=== PATIENT | male | born 1950 | race Caucasian/White ===

== ENCOUNTER 2017-05-14 09:49 | Emergency (ER) | payer MEDICAID, OTHER ==
[~2017-05-14] VITALS: Ht 165.1 cm; Wt 64.7 kg
[2017-05-14] MEDS ORDERED: LISI20TA PO (10:09)
[2017-05-14] MEDS ORDERED: PRAV40TA2 PO (10:09)
[2017-05-14] MEDS ORDERED: TOPR50TA PO (10:09)
[2017-05-14] MEDS ORDERED: AMLO5TAB2 PO (10:09)
[2017-05-14] MEDS ORDERED: ASPI325T28 PO (10:09)
[2017-05-14] MEDS ORDERED: LIDOCAINE 2% W/EPIN INJ 20ML **PRES FREE INJ ONE (11:45)
[2017-05-14] MEDS ORDERED: BACT800T5 PO (12:28)
[2017-05-14 12:44] VITALS: BP 137/76
== END 2017-05-14 12:55 | disposition home or self-care (01) ==
LOC: M ED 09:49
DX: L72.3 Sebaceous cyst (principal); Z79.899 Other long term (current) drug therapy; Z79.82 Long term (current) use of aspirin; Z87.891 Personal history of nicotine dependence

== ENCOUNTER 2017-05-17 15:31 | Emergency (ER) | payer OTHER ==
[~2017-05-17] VITALS: Ht 165.1 cm; Wt 70.5 kg
[~2017-05-17 15:31] MED LIST: AMLO5TAB2 PO; ASPI325T28 PO; BACT800T5 PO; LISI20TA PO; PRAV40TA2 PO; TOPR50TA PO
[2017-05-17 15:32] VITALS: BP 112/68
== END 2017-05-17 18:07 | disposition home or self-care (01) ==
LOC: M ED 15:31
DX: L02.414 Cutaneous abscess of left upper limb (principal); L72.3 Sebaceous cyst; I10 Essential (primary) hypertension; E78.5 Hyperlipidemia, unspecified; Z79.899 Other long term (current) drug therapy; Z79.82 Long term (current) use of aspirin; Z87.891 Personal history of nicotine dependence

== ENCOUNTER → 2017-06-23 | Outpatient (REF) | payer MEDICARE, OTHER | LOC: M LAB REF 18:02 | PROVIDERS: ATTEND Surgery | DX: L72.3 Sebaceous cyst (principal) ==

== ENCOUNTER → 2018-12-12 | Outpatient (REF) | payer OTHER, MEDICARE ==
[~2018-12-12] MED LIST changes: -AMLO5TAB2 PO; +AMLO5TAB6 PO; +ASPI-222 PO; -ASPI325T28 PO
[2018-12-12 13:53] LABS: BASO % 0.2 % (0.0-1.0); EOS # 0.2 10^3/uL (0.0-0.50); EOS % 2.9 % (0.0-3.0); HEMATOCRIT 44.6 % (42.0-52.0); HEMOGLOBIN 15.5 g/dl (13.5-17.5); LYMPH # 1.2 10^3/uL (1.5-4.5); LYMPH % 21.6 % (24.0-44.0); MEAN CORPUSCULAR HEMOGLOBIN 31.5 pg (27.0-33.0); MEAN CORPUSCULAR HGB CONC 34.8 g/dl (32.0-36.5); MEAN CORPUSCULAR VOLUME 90.7 fl (80.0-96.0); MONO # 0.7 10^3/uL (0.0-0.8); MONO % 12.4 % (0.0-5.0); NEUTROPHILS # 3.4 10^3/uL (1.8-7.7); NEUTROPHILS % 62.7 % (36.0-66.0); PLATELET COUNT, AUTOMATED 199 10^3/uL (150-450); RED BLOOD COUNT 4.92 10^6/uL (4.30-6.10); WHITE BLOOD COUNT 5.5 10^3/uL (4.0-10.0)
[2018-12-12 14:02] LABS: ALBUMIN 3.8 GM/DL (3.2-5.2); ALT/SGPT 27 U/L (12-78); BILIRUBIN,TOTAL 0.5 MG/DL (0.2-1.0); BLOOD UREA NITROGEN 22 MG/DL (7-18); CALCIUM LEVEL 9.4 MG/DL (8.8-10.2); CARBON DIOXIDE LEVEL 23 MEQ/L (21-32); CHLORIDE LEVEL 108 MEQ/L (98-107); CHOLESTEROL LEVEL 161 MG/DL (<200); CHOLESTEROL RISK RATIO 4.128 (<5); CREATININE FOR GFR 1.03 MG/DL (0.70-1.30); GLOMERULAR FILTRATION RATE > 60.0 (>42); GLUCOSE, FASTING 93 MG/DL (70-100); HDL CHOLESTEROL 39 MG/DL (>40); LDL CHOLESTEROL 100 MG/DL (<100); NON-HDL-C 122 MG/DL; POTASSIUM SERUM 4.3 MEQ/L (3.5-5.1); SODIUM LEVEL 138 MEQ/L (136-145); TOTAL PROTEIN 7.3 GM/DL (6.4-8.2); TRIGLYCERIDES LEVEL 111 MG/DL (<150)
== END ==
LOC: M SFHCLERA 11:00
PROVIDERS: ATTEND Nurse Practitioner Family
DX: Z13.220 Encounter for screening for lipoid disorders (principal); Z13.1 Encounter for screening for diabetes mellitus

== ENCOUNTER → 2019-05-12 | Outpatient (CLI) | payer OTHER, MEDICARE ==
[~2019-05-12] MED LIST changes: -ASPI-222 PO; +ASPI-527 PO; -LISI20TA PO; +LISI20TA19 PO
--- NOTE | 2019-05-12 13:41 | REP ---
Clinical: Lower back pain Technique: AP, lateral, bilateral oblique and coned-down views of the lumbosacral spine. Findings: Age-related osteopenia and moderate multilevel degenerative changes are appreciated including endplate sclerosis with marginal spurring. No acute fracture / compression injury or subluxation. Impression: Osteopenia and moderate multilevel degenerative changes. Electronically Signed by Sourav White MD 05/12/2019 01:32 P
== END ==
LOC: M LRY 13:05
PROVIDERS: ATTEND Nurse Practitioner Family
DX: M85.88 Other specified disorders of bone density and structure, other site (principal); M51.36 Other intervertebral disc degeneration, lumbar region

== ENCOUNTER 2020-08-05 12:36 | Emergency (ER) | payer MEDICARE, OTHER ==
[~2020-08-05] VITALS: Ht 165.1 cm; Wt 66.6 kg
[~2020-08-05 12:36] MED LIST changes: +AMLO1TAB24 PO; -AMLO5TAB6 PO; -LISI20TA19 PO; +LISI20TA35 PO
[2020-08-05] MEDS ORDERED: NS 1,000 ML IV ONE (14:45)
[2020-08-05 15:02] LABS: BASO % 0.2 % (0.0-1.0); HEMATOCRIT 45.4 % (42.0-52.0); LYMPH % 20.3 % (24.0-44.0); MEAN CORPUSCULAR HEMOGLOBIN 30.4 pg (27.0-33.0); MEAN CORPUSCULAR VOLUME 91.9 fl (80.0-96.0); MONO # 0.5 10^3/uL (0.0-0.8); MONO % 11.1 % (0.0-5.0); NEUTROPHILS # 3.2 10^3/uL (1.5-8.5); PLATELET COUNT, AUTOMATED 143 10^3/uL (150-450); RED BLOOD COUNT 4.94 10^6/uL (4.30-6.10); WHITE BLOOD COUNT 4.7 10^3/uL (4.0-10.0)
[2020-08-05 15:38] LABS: ALBUMIN 3.7 GM/DL (3.2-5.2); BILIRUBIN,DIRECT 0.1 MG/DL (0.0-0.2); BILIRUBIN,TOTAL 0.4 MG/DL (0.2-1.0); CREATININE FOR GFR 2.23 MG/DL (0.70-1.30); POTASSIUM SERUM 4.2 MEQ/L (3.5-5.1); TOTAL PROTEIN 7.1 GM/DL (6.4-8.2)
--- NOTE | 2020-08-05 16:48 | REP ---
INDICATION: diarrhea/ arf. COMPARISON: None TECHNIQUE: Limited noncontrast enhanced exam and without oral bowel preparatory contrast administration. FINDINGS: Patchy and asymmetric lung base opacities likely fibrotic and/or subsegmental atelectatic changes. There are no pleural or pericardial effusions. There is cholelithiasis. Limited evaluation of the liver and spleen show no gross abnormalities. There are splenic calcifications consistent with granulomatous calcifications. Limited evaluation of the pancreas, adrenal glands, and kidneys show no gross abnormalities. Limited evaluation of the abdominal aorta and para-aortic regions show heavy calcific atherosclerotic change in the distal abdominal aorta and in the common iliac arteries. Limited evaluation of the bowel loops and the mesenteries show no gross abnormalities. There is no free fluid or free air. There is no evidence of a mass or adenopathy. Increased adipose tissue seen in each inguinal canal right greater than left. Bone window technique throughout the exam shows age-related changes. IMPRESSION: 1. Cholelithiasis. 2. No evidence of acute intra-abdominal or intrapelvic disease with limitations and findings as described above. 3. Aortic and iliac arterial atheromatous calcifications as described above. 4. Possible bilateral adipose containing inguinal hernias right greater than left. <Electronically signed by Uriel No > 08/05/20 [id number]
[2020-08-05 17:39] VITALS: BP 158/74
== END 2020-08-05 18:10 | disposition home or self-care (01) ==
LOC: M ED 12:36
DX: R19.7 Diarrhea, unspecified (principal); E86.0 Dehydration; K80.20 Calculus of gallbladder without cholecystitis without obstruction; I70.0 Atherosclerosis of aorta

== ENCOUNTER 2020-08-13 15:25 | Inpatient (IN) | payer MEDICARE, OTHER ==
[~2020-08-13] VITALS: Ht 165.1 cm; Wt 61.5 kg
[2020-08-13 16:11] LABS: BASO % 0.2 % (0.0-1.0); EOS % 0.4 % (0.0-3.0); HEMATOCRIT 45.7 % (42.0-52.0); HEMOGLOBIN 15.1 g/dl (13.5-17.5); LYMPH # 0.6 10^3/uL (1.5-5.0); LYMPH % 9.8 % (24.0-44.0); MEAN CORPUSCULAR HEMOGLOBIN 30.4 pg (27.0-33.0); MEAN CORPUSCULAR VOLUME 92.1 fl (80.0-96.0); MONO # 0.4 10^3/uL (0.0-0.8); MONO % 7.1 % (0.0-5.0); NEUTROPHILS # 4.6 10^3/uL (1.5-8.5); PLATELET COUNT, AUTOMATED 128 10^3/uL (150-450); RED BLOOD COUNT 4.96 10^6/uL (4.30-6.10); WHITE BLOOD COUNT 5.6 10^3/uL (4.0-10.0)
[2020-08-13 16:21] LABS: INR 0.96
[2020-08-13 16:22] LABS: FIBRINOGEN 500 MG/DL (221-452); PARTIAL THROMBOPLASTIN TIME 31.2 SECONDS (24.2-38.5)
--- NOTE | 2020-08-13 16:25 | REP ---
INDICATION: Coronavirus workup. COMPARISON: None TECHNIQUE: Single AP view of the chest performed portably with the patient upright. FINDINGS: The interstitium is a diffusely coarsened. This could be acute or chronic. There are no comparisons. There are no focal infiltrates or pleural effusions. Cardiac size is normal. The bailey, mediastinum, and skeletal structures are unremarkable. IMPRESSION: Coarsened interstitium. This could be acute or chronic. There are no comparisons. <Electronically signed by Minh Crawley > 08/13/20 [id number]
[2020-08-13] MEDS ORDERED: METO50TA7 PO (16:28)
[2020-08-13 16:34] LABS: ALBUMIN 2.7 GM/DL (3.2-5.2); ALT/SGPT 28 U/L (12-78); BLOOD UREA NITROGEN 58 MG/DL (7-18); CALCIUM LEVEL 7.9 MG/DL (8.8-10.2); CARBON DIOXIDE LEVEL 26 MEQ/L (21-32); CHLORIDE LEVEL 104 MEQ/L (98-107); CK-MB VALUE MASS 1.7 NG/ML (<3.6); CPK CREATINE PHOSPHOKINASE 164 U/L (39-308); CREATININE FOR GFR 1.65 MG/DL (0.70-1.30); FERRITIN 817 NG/ML (26-388); GLOMERULAR FILTRATION RATE 43.9 (>42); GLUCOSE, FASTING 117 MG/DL (70-100); LDH LACTATE DEHYDROGENASE 425 U/L (87-241); MAGNESIUM LEVEL 2.4 MG/DL (1.8-2.4); MB/CK RELATIVE INDEX 1.04 (< OR =4); POTASSIUM SERUM 4.4 MEQ/L (3.5-5.1); SODIUM LEVEL 136 MEQ/L (136-145); TOTAL PROTEIN 6.2 GM/DL (6.4-8.2); TROPONIN I < 0.02 NG/ML (< 0.10)
[2020-08-13 16:39] LABS: D-DIMER QUANT > 4000 ng/ml (<500)
[2020-08-13 17:15] LABS: ABG BASE EXCESS -1.7 (-2.0-2.0); ABG O2 SATURATION 91.2 % (95.0-99.0); ABG PARTIAL PRESSURE CO2 30.3 mmHg (35.0-45.0); ABG STANDARD HCO3 22.9 MEQ/L (22.0-26.0); ABG TOTAL CO2 21.9 MEQ/L (23.0-31.0); ABG pH (ARTERIAL) 7.458 UNITS (7.350-7.450)
[2020-08-13] MEDS: NS 1,000 ML IV SCH ×2 (17:38→23:50)
[2020-08-13] MEDS ORDERED: NS 1,000 ML IV ONE (19:45)
--- NOTE | 2020-08-13 19:56 | HPEPDOC ---
[facility] Medical History & Physical Date of Admission Aug 13, 2020 Date of Service: Aug 13, 2020 History and Physical CHIEF COMPLAINT: hypoxia HISTORY OF PRESENT ILLNESS: 70 yo M with a hx of HTN, DVT, R BKA, difficulty hearing, was seen at an urgent care, found to be COVID+. Had been in bed for 4 days, and has had poor PO intake. Patient lives in a house with his cousin, who became concerned with worsening shortness of breath so they brought him to urgent care, and he tested positive. On arrival to ED hypoxic to 70s. Requred 50% FiO2 on venturi mask. Admitted to ICU for COVID-19 infection management due to increased O2 requirement. 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 Lives with his brother. Independent at baseline. Quit smoking 20 years ago Denies drinking FAMILY HISTORY: Patient unable to specify family history. ALLERGIES: Please see below. REVIEW OF SYSTEMS: CONSTITUTIONAL: Warts, dyspnea or subjective chills HEENT: patient denies blurred vision, loss of vision, headache,. CARDIOVASCULAR: patient denies chest pain, palpitations. RESPIRATORY: No shortness of breath, cough, non-productive GASTROINTESTINAL: patient denies abdominal pain, n/v/d, blood in stool. GENITOURINARY: patient denies dysuria, discharge. SKIN: patient denies rashes. MUSCULOSKELETAL: patient denies joint pain, neck pain. NEUROLOGICAL: patient denies focal weakness, numbness, seizures. PSYCHIATRIC: patient denies SI/HI. ENDOCRINE: patient denies polyuria, heat intolerance, cold intolerance. HEMATOLOGIC/LYMPHATIC: patient denies easy bruising. HOME MEDICATIONS: Please see below. PHYSICAL EXAMINATION: VITAL SIGNS: please see below General: NAD, comfortable HEENT: PERRLA, EOMI, dry mucous membranes Neck: supple, normal ROM, no JVD Respiratory: Reduced air entry bilaterally. No wheezes. CVS: RRR, normal S1, S2, no murmurs Abdo: soft, no masses, no hepatosplenomegaly, BS+, no rebound tenderness Extremities: no edema MSK: Right BKA Neuro: no focal neuro deficits, moving all 4 extremities, CN2-12 intact. Strength 5/5 in all 4 extremities. No nystagmus. Psych: calm, cooperative, AAO x 3 LABORATORY DATA: See below. IMAGING: Chest x-ray 08/13/20 FINDINGS: The interstitium is a diffusely coarsened. This could be acute or chronic. There are no comparisons. There are no focal infiltrates or pleural effusions. Cardiac size is normal. The bailey, mediastinum, and skeletal structures are unremarkable. IMPRESSION: Coarsened interstitium. This could be acute or chronic. There are no comparisons. MICROBIOLOGY: Please see below. ASSESSMENT: 70-year-old male with history of hypertension, right BKA secondary to diabetes, admitted for hypoxia secondary to Covid 19 infection. Require immediate treatment mask 50% FiO2. Will be admitted to Covid unit on dexamethasone as well as remdesevir. PLAN: Covid 19: Admitted to Covid unit. Continuous oxygen monitoring. Continue the treatment mask 50% FiO2 to maintain oxygen saturation above 90%. D-dimer>4000. fibrinogen 500. CRP 12.3. Start dexamethasone 6 minute grams IV daily started on the severe. Monitor inflammatory markers. Monitor DIC panel. Trop wnl. Lactic acidosis: Lactic acid 2.7. Received normal saline at 150 mL/h. Give 1 L normal saline bolus. Repeat lactic acid DYLAN: Cr 1.65. Suspect prerenal DYLAN. Check FeNa. Avoid nephrotoxins. DVT prophylaxis: Give 1 dose of Lovenox 1 mg/kg given hypoxia as well as elevated inflammatory markers as well as d-dimer. 4000. Vital Signs Vital Signs Date Time Temp Pulse Resp B/P (MAP) Pulse Ox O2 Delivery O2 Flow Rate FiO2 08/13/20 18:45 90 24 103/57 (72) 94 Venturi Mask 6.0 08/13/20 16:09 95 08/13/20 16:03 95.4 Laboratory Data Labs 24H Laboratory Tests 2 08/13/20 15:53: Immature Granulocyte % (Auto) 0.5, Neutrophils (%) (Auto) 82.0H, Lymphocytes (%) (Auto) 9.8L, Monocytes (%) (Auto) 7.1H, Eosinophils (%) (Auto) 0.4, Basophils (%) (Auto) 0.2, Neutrophils # (Auto) 4.6, Lymphocytes # (Auto) 0.6L, Monocytes # (Auto) 0.4, Eosinophils # (Auto) 0.0, Basophils # (Auto) 0.0, Nucleated Red Blood Cells % (auto) 0.0, Prothrombin Time 13.0, Prothromb Time International Ratio 0.96, Activated Partial Thromboplast Time 31.2, Fibrinogen 500H, D-Dimer, Quantitative > 4000H, Anion Gap 6L, Glomerular Filtration Rate 43.9, Lactic Acid Level 2.7*H, Calcium Level 7.9L, Magnesium Level 2.4, Ferritin 817H, Total Bilirubin 1.0, Aspartate Amino Transf (AST/SGOT) 39H, Alanine Aminotransferase (ALT/SGPT) 28, Alkaline Phosphatase 50, Lactate Dehydrogenase 425H, Total Creatine Kinase 164, Creatine Kinase MB 1.7, Creatine Kinase MB Relative Index 1.04, Troponin I < 0.02, C-Reactive Protein, Quantitative 12.30H, Total Protein 6.2L, Albumin 2.7L, Albumin/Globulin Ratio 0.8 08/13/20 17:11: Blood Gas Bicarbonate Standard 22.9, Arterial Blood pH 7.458H, Arterial Blood Partial Pressure CO2 30.3L, Arterial Blood Partial Pressure O2 60.0L, Arterial Blood Total CO2 21.9L, Arterial Blood HCO3 21.0L, Arterial Blood Base Excess - 1.7, Arterial Blood Oxygen Saturation 91.2L CBC/BMP Laboratory Tests 08/13/20 15:53 Home Medications Scheduled Amlodipine Besylate (Amlodipine Besylate) 5 Mg Tab, 10 MG PO DAILY Aspirin (Aspirin EC) 325 Mg Tab, 325 MG PO DAILY Enoxaparin Sodium (Lovenox) 60 Mg/0.6 Ml Syringe, 60 MG SC Q12H Metoprolol Tartrate (Metoprolol Tartrate) 50 Mg Tablet, 50 MG PO BID Pravastatin Sodium (Pravastatin Sodium) 40 Mg Tab, 40 MG PO DAILY Scheduled PRN Albuterol Sulfate (Ventolin Hfa) 18 Gm Hfa.aer.ad, 2 PUFF INH Q4-6HP PRN for wheezing Allergies Coded Allergies: No Known Allergies (Unverified , 08/05/20) A-FIB/CHADSVASC A-FIB History Current/History of A-Fib/PAF?: No Current PO Anticoag Therapy: No EDUAR SANTIAGO MD Aug 13, 2020 19:55
[2020-08-13] MEDS: dexameTHASONE 4 MG/ML 1ML VIAL (J1100 PER 1MG) IV SCH (20:30)
[2020-08-13] MEDS ORDERED: SODIUM CHLORIDE 0.9% INJ 10 ML SYR IV ONE ×2 (21:00→21:30)
--- NOTE | 2020-08-13 21:00 | ECGEPIP ---
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
[2020-08-13] MEDS ORDERED: ENOXAPARIN 80MG/0.8ML SYRINGE (J1650 PER 10MG) SC ONE (22:00)
[2020-08-13 23:10] VITALS: O2SAT 89
[2020-08-14] VITALS (15 sets, daily range): BP systolic 97–145; BP diastolic 55–69; O2SAT 88–94
[2020-08-14 05:21] LABS: HEMATOCRIT 39.1 % (42.0-52.0); LYMPH # 0.3 10^3/uL (1.5-5.0); LYMPH % 11.2 % (24.0-44.0); MEAN CORPUSCULAR HEMOGLOBIN 30.6 pg (27.0-33.0); MEAN CORPUSCULAR HGB CONC 33.5 g/dl (32.0-36.5); MEAN CORPUSCULAR VOLUME 91.4 fl (80.0-96.0); MONO # 0.1 10^3/uL (0.0-0.8); MONO % 4.1 % (0.0-5.0); NEUTROPHILS % 84.3 % (36.0-66.0); PLATELET COUNT, AUTOMATED 104 10^3/uL (150-450); RED BLOOD COUNT 4.28 10^6/uL (4.30-6.10); WHITE BLOOD COUNT 2.4 10^3/uL (4.0-10.0)
[2020-08-14 05:22] LABS: HEMOGLOBIN 13.1 g/dl (13.5-17.5)
[2020-08-14 05:28] LABS: INR 1.16; PROTHROMBIN TIME 15.1 SECONDS (12.5-14.3)
[2020-08-14 05:29] LABS: PARTIAL THROMBOPLASTIN TIME 41.3 SECONDS (24.2-38.5)
[2020-08-14 06:03] LABS: ALT/SGPT 21 U/L (12-78); BILIRUBIN,DIRECT 0.3 MG/DL (0.0-0.2); BILIRUBIN,TOTAL 0.5 MG/DL (0.2-1.0); BLOOD UREA NITROGEN 46 MG/DL (7-18); CARBON DIOXIDE LEVEL 23 MEQ/L (21-32); CHLORIDE LEVEL 113 MEQ/L (98-107); FERRITIN 737 NG/ML (26-388); GLOMERULAR FILTRATION RATE > 60.0 (>42); GLUCOSE, FASTING 146 MG/DL (70-100); MAGNESIUM LEVEL 2.3 MG/DL (1.8-2.4); NT-PRO BNP 338 PG/ML (<125); POTASSIUM SERUM 4.7 MEQ/L (3.5-5.1); SODIUM LEVEL 141 MEQ/L (136-145); TROPONIN I < 0.02 NG/ML (< 0.10)
[2020-08-14] MEDS: NS 1,000 ML IV SCH (06:32)
--- NOTE | 2020-08-14 07:42 | IPNPDOC ---
Date Seen The patient was seen on 08/14/20. Progress Note SUBJECTIVE: Patient was seen and examined at bedside this morning. He is currently on high flow nasal cannula at 6 L. However, he is saturating between 88-90%. For the desaturation movement or ambulation. He describes mild shortness of breath. He denies any chest pain, cough, fevers or chills. He is comfortable at bedside. He has not had any fevers overnight. He is currently receiving dexamethasone and remdesivir. OBJECTIVE VITAL SIGNS: please see below General: NAD, comfortable HEENT: PERRLA, EOMI, dry mucous membranes Neck: supple, normal ROM, no JVD Respiratory: Reduced air entry bilaterally. No wheezes. CVS: RRR, normal S1, S2, no murmurs Abdo: soft, no masses, no hepatosplenomegaly, BS+, no rebound tenderness Extremities: no edema MSK: Right BKA Neuro: no focal neuro deficits, moving all 4 extremities (R bka). CN2-12 intact. Psych: calm, cooperative, AAO x 3 LABORATORY DATA, IMAGING STUDIES, MICROBIOLOGY: Please see below. 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 Given severe hypoxia elevation in d-dimer, as well as other family to markers high concern for pulmonary embolism. Per Dr. Henry's recommendations. We'll continue with full dose and regulation. Increase doses morning. Given improvement in renal function. PROBLEMS: Covid 19: Admitted to Covid unit. Continuous oxygen monitoring. reduced O2 requirement, now 6L on NC. C/w dexamethasone, remdesivir. Full dose AC with lovenox 1mg/kg q12h. Monitor inflammatory markers. Monitor DIC panel. Trop wnl. procal netative. Lactic acidosis: Resolved with IVF bolus. DYLAN: Resolved. Creatinine 1.0. Secondary to dehydration. Improved with IVF. Reduced NS to 75 cc/hr. DVT prophylaxis: Continue full dose anticoagulations with Lovenox at 1 mg/kg every 12 hours VS, I&O, 24H, Fishbone Vital Signs/I&O Vital Signs Date Time Temp Pulse Resp B/P (MAP) Pulse Ox O2 Delivery O2 Flow Rate FiO2 08/14/20 06:00 81 20 120/62 (81) 92 Venturi Mask 15.0 50 08/14/20 04:00 95.7 I&O- Last 24 Hours up to 6 AM 08/14/20 06:00 Intake Total 1610 ml Output Total 275 ml Balance 1335 ml Laboratory Data 24H LABS Laboratory Tests 2 08/13/20 15:53: Immature Granulocyte % (Auto) 0.5, Neutrophils (%) (Auto) 82.0H, Lymphocytes (%) (Auto) 9.8L, Monocytes (%) (Auto) 7.1H, Eosinophils (%) (Auto) 0.4, Basophils (%) (Auto) 0.2, Neutrophils # (Auto) 4.6, Lymphocytes # (Auto) 0.6L, Monocytes # (Auto) 0.4, Eosinophils # (Auto) 0.0, Basophils # (Auto) 0.0, Nucleated Red Blood Cells % (auto) 0.0, Prothrombin Time 13.0, Prothromb Time International Ratio 0.96, Activated Partial Thromboplast Time 31.2, Fibrinogen 500H, D-Dimer, Quantitative > 4000H, Anion Gap 6L, Glomerular Filtration Rate 43.9, Lactic Acid Level 2.7*H, Calcium Level 7.9L, Magnesium Level 2.4, Ferritin 817H, Total Bilirubin 1.0, Aspartate Amino Transf (AST/SGOT) 39H, Alanine Aminotransferase (ALT/SGPT) 28, Alkaline Phosphatase 50, Lactate Dehydrogenase 425H, Total Creatine Kinase 164, Creatine Kinase MB 1.7, Creatine Kinase MB Relative Index 1.04, Troponin I < 0.02, C-Reactive Protein, Quantitative 12.30H, Total Protein 6.2L, Albumin 2.7L, Albumin/Globulin Ratio 0.8 08/13/20 17:11: Blood Gas Bicarbonate Standard 22.9, Arterial Blood pH 7.458H, Arterial Blood Partial Pressure CO2 30.3L, Arterial Blood Partial Pressure O2 60.0L, Arterial Blood Total CO2 21.9L, Arterial Blood HCO3 21.0L, Arterial Blood Base Excess - 1.7, Arterial Blood Oxygen Saturation 91.2L 08/13/20 21:00: Lactic Acid Followup at 4 Hours 1.4 08/14/20 04:56: Immature Granulocyte % (Auto) 0.4, Neutrophils (%) (Auto) 84.3H, Lymphocytes (%) (Auto) 11.2L, Monocytes (%) (Auto) 4.1, Eosinophils (%) (Auto) 0.0, Basophils (%) (Auto) 0.0, Neutrophils # (Auto) 2.0, Lymphocytes # (Auto) 0.3L, Monocytes # (Auto) 0.1, Eosinophils # (Auto) 0.0, Basophils # (Auto) 0.0, Nucleated Red Blood Cells % (auto) 0.0, Prothrombin Time 15.1H, Prothromb Time International Ratio 1.16, Activated Partial Thromboplast Time 41.3H, Fibrinogen 457H, Anion Gap 5L, Glomerular Filtration Rate > 60.0, Calcium Level 7.0L, Magnesium Level 2.3, Ferritin 737H, Total Bilirubin 0.5, Aspartate Amino Transf (AST/SGOT) 27, Alanine Aminotransferase (ALT/SGPT) 21, Alkaline Phosphatase 40L, Troponin I < 0.02, Total Protein 5.0L, Albumin 2.0#L, Albumin/Globulin Ratio 0.7, Direct Bilirubin 0.3H, OX-Rsp-Q-Type Natriuretic Peptide 338H CBC/BMP Laboratory Tests 08/13/20 15:53 08/14/20 04:56 EDUAR SANTIAGO MD Aug 14, 2020 07:42
[2020-08-14] MEDS ORDERED: FLUBLOK(EGG FREE)(QUAD)INFLUENZA VACC 0.5ML SYRINGE 18YRS & OLDER IM SCH (09:00)
[2020-08-14] MEDS: ENOXAPARIN 80MG/0.8ML SYRINGE (J1650 PER 10MG) SC SCH ×2 (09:13→22:04)
[2020-08-14] MEDS: dexameTHASONE 4 MG/ML 1ML VIAL (J1100 PER 1MG) IV SCH (09:14)
[2020-08-14] MEDS ORDERED: NS 1,000 ML IV SCH (10:45)
[2020-08-14] MEDS ORDERED: NS 0.45% 1,000 ML IV SCH (11:30)
--- NOTE | 2020-08-14 15:29 | REP ---
INDICATION: covid, hyypoxia,r/o dvt COMPARISON: 07/18/2007 TECHNIQUE: Real time compression and duplex Doppler interrogation of the bilateral lower extremity deep venous system is performed. FINDINGS: Bilaterally, the common femoral, superficial femoral and popliteal veins are fully compressible with transducer pressure and demonstrate normal spontaneous and phasic flow, without evidence of deep venous thrombosis. IMPRESSION: No evidence of deep venous thrombosis of the bilateral lower extremity femoral popliteal venous system. <Electronically signed by Minh Sloan > 08/14/20 [id number]
[2020-08-14] MEDS ORDERED: SODIUM CHLORIDE 0.9% INJ 10 ML SYR IV SCH (20:30)
[2020-08-14] MEDS: SODIUM CHLORIDE 0.9% INJ 10 ML SYR IV SCH (22:05)
[2020-08-15] VITALS (14 sets, daily range): BP systolic 125–167; BP diastolic 62–71; O2SAT 84–90
[2020-08-15 07:09] LABS: BASO % 0.1 % (0.0-1.0); HEMATOCRIT 37.5 % (42.0-52.0); HEMOGLOBIN 12.4 g/dl (13.5-17.5); LYMPH # 0.6 10^3/uL (1.5-5.0); LYMPH % 8.9 % (24.0-44.0); MEAN CORPUSCULAR HGB CONC 33.1 g/dl (32.0-36.5); MEAN CORPUSCULAR VOLUME 90.6 fl (80.0-96.0); MONO # 0.4 10^3/uL (0.0-0.8); NEUTROPHILS # 6.2 10^3/uL (1.5-8.5); NEUTROPHILS % 85.2 % (36.0-66.0); PLATELET COUNT, AUTOMATED 150 10^3/uL (150-450); RED BLOOD COUNT 4.14 10^6/uL (4.30-6.10); WHITE BLOOD COUNT 7.2 10^3/uL (4.0-10.0)
[2020-08-15 07:26] LABS: INR 1.27; PARTIAL THROMBOPLASTIN TIME 39.4 SECONDS (24.2-38.5); PROTHROMBIN TIME 16.2 SECONDS (12.5-14.3)
[2020-08-15 07:33] LABS: ALBUMIN 1.9 GM/DL (3.2-5.2); ALT/SGPT 22 U/L (12-78); BILIRUBIN,DIRECT 0.2 MG/DL (0.0-0.2); BILIRUBIN,TOTAL 0.4 MG/DL (0.2-1.0); BLOOD UREA NITROGEN 40 MG/DL (7-18); CALCIUM LEVEL 7.6 MG/DL (8.8-10.2); CARBON DIOXIDE LEVEL 20 MEQ/L (21-32); CHLORIDE LEVEL 114 MEQ/L (98-107); CREATININE FOR GFR 0.98 MG/DL (0.70-1.30); FERRITIN 596 NG/ML (26-388); GLOMERULAR FILTRATION RATE > 60.0 (>42); GLUCOSE, FASTING 147 MG/DL (70-100); MAGNESIUM LEVEL 2.4 MG/DL (1.8-2.4); NT-PRO BNP 1214 PG/ML (<125); POTASSIUM SERUM 4.4 MEQ/L (3.5-5.1); SODIUM LEVEL 141 MEQ/L (136-145); TOTAL PROTEIN 5.5 GM/DL (6.4-8.2); TROPONIN I < 0.02 NG/ML (< 0.10)
[2020-08-15 08:37] LABS: IRON (FE) 66 UG/DL (65-175)
[2020-08-15] MEDS: dexameTHASONE 4 MG/ML 1ML VIAL (J1100 PER 1MG) IV SCH (09:23)
[2020-08-15] MEDS: ENOXAPARIN 80MG/0.8ML SYRINGE (J1650 PER 10MG) SC SCH ×2 (09:24→21:18)
[2020-08-15 09:46] LABS: TOTAL 25(OH) VITAMIN D 25.4 NG/ML (30.0-100.0); VITAMIN B12 LEVEL > 2000 PG/ML (247-911)
--- NOTE | 2020-08-15 12:08 | IPNPDOC ---
Date Seen The patient was seen on 08/15/20. Progress Note SUBJECTIVE: Patient was seen and examined at bedside this morning. He is requiring greater oxygen supplementation, increased HF NC to 10LPM and was saturating at 88-90%. Decision to go to vapotherm. Will attempt proning. Despite increasing oxygen requirement. Patient appears quite comfortable at rest. He is alert and awake in bed, sitting upright. He has difficulty communicating due to severe hearing impairment. However, he has hearing phase by his side. He states that he wanted to be intubated if it comes to that. He denies fevers, chills, shortness of breath, chest pain, developing nausea, vomiting or diarrhea. OBJECTIVE VITAL SIGNS: please see below General: NAD, comfortable HEENT: PERRLA, EOMI, dry mucous membranes Neck: supple, normal ROM, no JVD Respiratory: Reduced air entry bilaterally. No wheezes. CVS: RRR, normal S1, S2, no murmurs Abdo: soft, no masses, no hepatosplenomegaly, BS+, no rebound tenderness Extremities: no edema MSK: Right BKA Neuro: no focal neuro deficits, moving all 4 extremities (R bka). CN2-12 intact. Psych: calm, cooperative, AAO x 3 LABORATORY DATA, IMAGING STUDIES, MICROBIOLOGY: Please see below. 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 Given severe hypoxia elevation in d-dimer, as well as other family to markers high concern for pulmonary embolism. Per Dr. Henry's recommendations, will continue with full dose and regulation. PROBLEMS: Covid 19: Admitted to Covid unit. Continuous oxygen monitoring. Patient now requiring increased O2. Will use vapotherm, trial proning. C/w dexamethasone, remdesivir. Full dose AC with lovenox 1mg/kg q12h. Monitor inflammatory markers. Monitor DIC panel, fibrinogen 375. Trop wnl. procal negative. Lactic acidosis: Resolved with IVF bolus. DYLAN: Resolved. Creatinine 1.0. Secondary to dehydration. Improved with IVF. DVT prophylaxis: Continue full dose anticoagulations with Lovenox at 1 mg/kg every 12 hours I spoke patient's daughter, Ayaka Amaral at [phone] and updated her as to increased O2 requirements, and possible need for intubation. Patient verbalized to me that he wants to be intubated if needed, and that his daughter would make decisions for him thereafter. VS, I&O, 24H, Deandrebone Vital Signs/I&O Vital Signs Date Time Temp Pulse Resp B/P (MAP) Pulse Ox O2 Delivery O2 Flow Rate FiO2 08/15/20 10:00 HVNI-Vapotherm 25.0 95 08/15/20 10:00 78 14 143/66 (91) 99 08/15/20 08:00 95.8 I&O- Last 24 Hours up to 6 AM 08/15/20 06:00 Intake Total 2680 ml Output Total 600 ml Balance 2080 ml Laboratory Data 24H LABS Laboratory Tests 2 08/14/20 19:35: Troponin I < 0.02 08/15/20 06:43: Troponin I < 0.02, Immature Granulocyte % (Auto) 0.8, Neutrophils (%) (Auto) 85.2H, Lymphocytes (%) (Auto) 8.9L, Monocytes (%) (Auto) 5.0, Eosinophils (%) (Auto) 0.0, Basophils (%) (Auto) 0.1, Neutrophils # (Auto) 6.2, Lymphocytes # (Auto) 0.6L, Monocytes # (Auto) 0.4, Eosinophils # (Auto) 0.0, Basophils # (Auto) 0.0, Nucleated Red Blood Cells % (auto) 0.0, Prothrombin Time 16.2H, Prothromb Time International Ratio 1.27, Activated Partial Thromboplast Time 39.4H, Fibrinogen 375, Anion Gap 7L, Glomerular Filtration Rate > 60.0, Calcium Level 7.6L, Magnesium Level 2.4, Iron Level 66, Ferritin 596H, Total Bilirubin 0.4, Direct Bilirubin 0.2, Aspartate Amino Transf (AST/SGOT) 23, Alanine Aminotransferase (ALT/SGPT) 22, Alkaline Phosphatase 47, EC-Ulv-A-Type Natriuretic Peptide 1214H, Total Protein 5.5L, Albumin 1.9L, Albumin/Globulin Ratio 0.5, Vitamin B12 Level > 2000H, 25-Hydroxy Vitamin D Total 25.4L, Folate 14.0, Procalcitonin 0.05 CBC/BMP Laboratory Tests 08/15/20 06:43 EDUAR SANTIAGO MD Aug 15, 2020 12:08
[2020-08-15 12:16] LABS: C REACTIVE PROTEIN QUANTITATIV 6.65 MG/DL (0.00-0.30)
[2020-08-15 12:46] LABS: D-DIMER QUANT 2230.53 ng/ml (<500)
--- NOTE | 2020-08-15 14:26 | ECHO ---
DATE OF PROCEDURE: 08/14/2020 Age: 70 Gender: Male Height: 165 cm Weight: 76 kg REFERRING PHYSICIAN: Otilio Tolentino MD INDICATION: Dyspnea, unspecified. MEASUREMENTS: 2D Measurements: Intraventricular septum 1.12 cm Posterior wall 0.84 cm Left ventricle diastole 4.3 cm Aortic root 3.6 cm Left atrium 2.7 cm Left atrial volume index 14 Inferior vena cava 1.2 cm with more than 50% respiratory variation Aortic annulus 2.1 cm Doppler Measurements: Mild aortic regurgitation Moderate aortic stenosis Aortic valve area 1.15 cm2 (continuity equation, VTI). Dimensionless index 0.33 Peak aortic valve gradient 371 cm/s Peak aortic valve gradient 55 mmHg Mean aortic valve gradient 34 mmHg Aortic valve VTI 85.7 cm Aortic regurgitation pressure halftime 487 msec LVOT velocity 116 cm/s LVOT VTI 28.5 cm No mitral regurgitation No mitral stenosis Mitral E velocity 58.5 cm/s Mitral A velocity 72.7 cm/s Trace tricuspid regurgitation Pulmonary artery acceleration time 116 msec No pulmonic regurgitation MITRAL ANNULAR TISSUE DOPPLER E prime septal 6.6 cm/s, E prime lateral 9.7 cm/s DESCRIPTION: Rhythm was sinus. Image quality was fair. No pericardial effusion. This was a 2D, M-mode, color flow Doppler, and pulsed wave Doppler examination including mitral annular tissue Doppler. CONCLUSIONS: 1. Severe focal thickening and focal calcification deposits of the aortic valve with marked reduction in mobility. Difficult to determine the number of aortic cusps. Moderate aortic stenosis and mild aortic regurgitation. 2. Normal left ventricle size and internal dimensions and wall thickness. Mildly hyperdynamic left ventricular (LV) systolic function. Left ventricular ejection fraction (LVEF) 70% by visual estimate. No regional left ventricular (LV) wall motion abnormalities. Grade 1 left ventricular (LV) diastolic dysfunction (impaired relaxation filling pattern). 3. Mild mitral annular calcification. No mitral regurgitation. 4. Otherwise normal appearing echocardiogram Doppler findings. ADDITIONAL COMMENTS AND RECOMMENDATIONS: Recommend a follow-up echocardiogram- Doppler in one year. JERONIMO
[2020-08-15] MEDS: SODIUM CHLORIDE 0.9% INJ 10 ML SYR IV SCH (21:18)
[2020-08-15] MEDS ORDERED: NS 1,000 ML IV ONE (22:00)
[2020-08-15] MEDS ORDERED: NS 1,000 ML IV SCH (22:15)
[2020-08-15] MEDS ORDERED: LR 1,000 ML IV SCH (22:15)
[2020-08-16] VITALS (11 sets, daily range): BP systolic 145–184; BP diastolic 65–86
[2020-08-16 05:52] LABS: BASO % 0.1 % (0.0-1.0); LYMPH # 0.8 10^3/uL (1.5-5.0); LYMPH % 9.1 % (24.0-44.0); MEAN CORPUSCULAR HEMOGLOBIN 29.8 pg (27.0-33.0); MEAN CORPUSCULAR HGB CONC 32.5 g/dl (32.0-36.5); MEAN CORPUSCULAR VOLUME 91.7 fl (80.0-96.0); MONO # 0.5 10^3/uL (0.0-0.8); NEUTROPHILS % 83.8 % (36.0-66.0); PLATELET COUNT, AUTOMATED 206 10^3/uL (150-450); RED BLOOD COUNT 4.36 10^6/uL (4.30-6.10); WHITE BLOOD COUNT 8.3 10^3/uL (4.0-10.0)
[2020-08-16 06:03] LABS: INR 1.23; PROTHROMBIN TIME 15.8 SECONDS (12.5-14.3)
[2020-08-16 06:04] LABS: PARTIAL THROMBOPLASTIN TIME 38.5 SECONDS (24.2-38.5)
[2020-08-16 06:16] LABS: ALBUMIN 2.1 GM/DL (3.2-5.2); ALT/SGPT 29 U/L (12-78); BILIRUBIN,DIRECT 0.2 MG/DL (0.0-0.2); BILIRUBIN,TOTAL 0.5 MG/DL (0.2-1.0); BLOOD UREA NITROGEN 33 MG/DL (7-18); CALCIUM LEVEL 7.7 MG/DL (8.8-10.2); CARBON DIOXIDE LEVEL 19 MEQ/L (21-32); CHLORIDE LEVEL 115 MEQ/L (98-107); CREATININE FOR GFR 0.83 MG/DL (0.70-1.30); FERRITIN 484 NG/ML (26-388); GLOMERULAR FILTRATION RATE > 60.0 (>42); GLUCOSE, FASTING 109 MG/DL (70-100); MAGNESIUM LEVEL 2.1 MG/DL (1.8-2.4); NT-PRO BNP 2725 PG/ML (<125); POTASSIUM SERUM 4.5 MEQ/L (3.5-5.1); SODIUM LEVEL 141 MEQ/L (136-145); TOTAL PROTEIN 5.4 GM/DL (6.4-8.2)
[2020-08-16 07:49] LABS: D-DIMER QUANT 1550.45 ng/ml (<500)
[2020-08-16] MEDS: ENOXAPARIN 80MG/0.8ML SYRINGE (J1650 PER 10MG) SC SCH ×2 (08:25→20:20)
[2020-08-16] MEDS: dexameTHASONE 4 MG/ML 1ML VIAL (J1100 PER 1MG) IV SCH (08:25)
[2020-08-16] MEDS: SODIUM CHLORIDE 0.9% INJ 10 ML SYR IV SCH (20:26)
--- NOTE | 2020-08-16 22:55 | IPNPDOC ---
Date Seen The patient was seen on 08/16/20. Progress Note SUBJECTIVE: Patient was seen and examined at bedside this morning. He is requiring greater oxygen supplementation, switched to vapotherm FiO2 80% 30 LPM. Patient is alert and oriented x 3. SOB. Denies chest pain, palpitations, n/v/d. OBJECTIVE VITAL SIGNS: please see below General: NAD, comfortable HEENT: PERRLA, EOMI, dry mucous membranes Neck: supple, normal ROM, no JVD Respiratory: Reduced air entry bilaterally. No wheezes. CVS: RRR, normal S1, S2, no murmurs Abdo: soft, no masses, no hepatosplenomegaly, BS+, no rebound tenderness Extremities: no edema MSK: Right BKA Neuro: no focal neuro deficits, moving all 4 extremities (R bka). CN2-12 intact. Psych: calm, cooperative, AAO x 3 LABORATORY DATA, IMAGING STUDIES, MICROBIOLOGY: Please see below. 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 Given severe hypoxia elevation in d-dimer, as well as other family to markers high concern for pulmonary embolism. Per Dr. Henry's recommendations, will continue with full dose and regulation. PROBLEMS: Acute hypoxic respiratory failure requiring venti mask O2 supplementation. Viral sepsis 2/2 covid-19 given lactic acidosis, hypotension, hypothermia. Covid 19: Admitted to Covid unit. Continuous oxygen monitoring. Vapotherm FiO2 80%, 30 LPM, trial proning. C/w dexamethasone, remdesivir. Full dose AC with lovenox 1mg/kg q12h. Monitor inflammatory markers. Monitor DIC panel, fibrinogen 375. Trop wnl. D dimer trending down. procal negative. DYLAN: Resolved. Creatinine 1.0. Secondary to dehydration. Improved with IVF. DVT prophylaxis: Continue full dose anticoagulations with Lovenox at 1 mg/kg every 12 hours CODE STATUS: full code. VS, I&O, 24H, Fishbone Vital Signs/I&O Vital Signs Date Time Temp Pulse Resp B/P (MAP) Pulse Ox O2 Delivery O2 Flow Rate FiO2 08/16/20 16:00 30.0 80 12/12/20 16:00 97.3 83 22 147/67 (93) 99 HVNI-Vapotherm I&O- Last 24 Hours up to 6 AM 08/16/20 06:00 Intake Total 1265 ml Output Total 1450 ml Balance -185 ml Laboratory Data 24H LABS Laboratory Tests 2 08/16/20 05:42: Anion Gap 7L, Glomerular Filtration Rate > 60.0, Calcium Level 7.7L, Magnesium Level 2.1, Ferritin 484H, Total Bilirubin 0.5, Direct Bilirubin 0.2, Aspartate Amino Transf (AST/SGOT) 24, Alanine Aminotransferase (ALT/SGPT) 29, Alkaline Phosphatase 53, DJ-Xtc-V-Type Natriuretic Peptide 2725H, Total Protein 5.4L, Albumin 2.1L, Albumin/Globulin Ratio 0.6 08/16/20 05:45: Immature Granulocyte % (Auto) 1.0, Neutrophils (%) (Auto) 83.8H, Lymphocytes (%) (Auto) 9.1L, Monocytes (%) (Auto) 6.0H, Eosinophils (%) (Auto) 0.0, Basophils (%) (Auto) 0.1, Neutrophils # (Auto) 7.0, Lymphocytes # (Auto) 0.8L, Monocytes # (Auto) 0.5, Eosinophils # (Auto) 0.0, Basophils # (Auto) 0.0, Nucleated Red Blood Cells % (auto) 0.0 08/16/20 06:00: Prothrombin Time 15.8H, Prothromb Time International Ratio 1.23, Activated Partial Thromboplast Time 38.5H, Fibrinogen 375, D-Dimer, Quantitative 1550.45H CBC/BMP Laboratory Tests 08/16/20 05:42 08/16/20 05:45 EDUAR SANTIAGO MD Aug 16, 2020 22:55
[2020-08-17] VITALS (18 sets, daily range): BP systolic 123–188; BP diastolic 61–82; O2SAT 87–95
[2020-08-17] MEDS ORDERED: METOPROLOL TART 25 MG TABLET As Ordered ONE (00:42)
[2020-08-17] MEDS ORDERED: METOPROLOL TART 50 MG TAB PO ONE (00:45)
[2020-08-17 05:33] LABS: BASO % 0.1 % (0.0-1.0); EOS % 0.3 % (0.0-3.0); HEMATOCRIT 40.9 % (42.0-52.0); HEMOGLOBIN 13.4 g/dl (13.5-17.5); LYMPH # 0.7 10^3/uL (1.5-5.0); LYMPH % 9.8 % (24.0-44.0); MEAN CORPUSCULAR HEMOGLOBIN 29.9 pg (27.0-33.0); MEAN CORPUSCULAR HGB CONC 32.8 g/dl (32.0-36.5); MEAN CORPUSCULAR VOLUME 91.3 fl (80.0-96.0); MONO # 0.5 10^3/uL (0.0-0.8); MONO % 7.1 % (0.0-5.0); NEUTROPHILS # 5.9 10^3/uL (1.5-8.5); PLATELET COUNT, AUTOMATED 212 10^3/uL (150-450); RED BLOOD COUNT 4.48 10^6/uL (4.30-6.10); WHITE BLOOD COUNT 7.2 10^3/uL (4.0-10.0)
[2020-08-17 05:44] LABS: INR 1.21; PROTHROMBIN TIME 15.6 SECONDS (12.5-14.3)
[2020-08-17 05:45] LABS: PARTIAL THROMBOPLASTIN TIME 37.6 SECONDS (24.2-38.5)
[2020-08-17 06:06] LABS: ALBUMIN 2.3 GM/DL (3.2-5.2); ALT/SGPT 46 U/L (12-78); BILIRUBIN,DIRECT 0.3 MG/DL (0.0-0.2); BILIRUBIN,TOTAL 0.8 MG/DL (0.2-1.0); BLOOD UREA NITROGEN 26 MG/DL (7-18); CALCIUM LEVEL 8.4 MG/DL (8.8-10.2); CARBON DIOXIDE LEVEL 27 MEQ/L (21-32); CHLORIDE LEVEL 110 MEQ/L (98-107); FERRITIN 442 NG/ML (26-388); GLOMERULAR FILTRATION RATE > 60.0 (>42); GLUCOSE, FASTING 85 MG/DL (70-100); MAGNESIUM LEVEL 1.8 MG/DL (1.8-2.4); NT-PRO BNP 3263 PG/ML (<125); POTASSIUM SERUM 4.2 MEQ/L (3.5-5.1); SODIUM LEVEL 141 MEQ/L (136-145); TOTAL PROTEIN 5.5 GM/DL (6.4-8.2)
[2020-08-17 08:05] LABS: D-DIMER QUANT 1412.15 ng/ml (<500)
[2020-08-17] MEDS: ENOXAPARIN 80MG/0.8ML SYRINGE (J1650 PER 10MG) SC SCH ×2 (08:33→20:00)
[2020-08-17] MEDS: amLODIPine 10 MG TAB PO SCH (08:33)
[2020-08-17] MEDS: METOPROLOL TART 50 MG TAB PO SCH ×2 (08:33→20:01)
--- NOTE | 2020-08-17 16:19 | IPNPDOC ---
Date Seen The patient was seen on 08/17/20. Progress Note SUBJECTIVE: Patient was seen and examined at bedside this morning. He is requiring greater oxygen supplementation, switched to vapotherm FiO2 80% 30 LPM. Patient is alert and oriented x 3. SOB. Denies chest pain, palpitations, n/v/d. OBJECTIVE VITAL SIGNS: please see below General: NAD, comfortable HEENT: PERRLA, EOMI, dry mucous membranes Neck: supple, normal ROM, no JVD Respiratory: Reduced air entry bilaterally. No wheezes. CVS: RRR, normal S1, S2, no murmurs Abdo: soft, no masses, no hepatosplenomegaly, BS+, no rebound tenderness Extremities: no edema MSK: Right BKA Neuro: no focal neuro deficits, moving all 4 extremities (R bka). CN2-12 intact. Psych: calm, cooperative, AAO x 3 LABORATORY DATA, IMAGING STUDIES, MICROBIOLOGY: Please see below. 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 Given severe hypoxia elevation in d-dimer, as well as other family to markers high concern for pulmonary embolism. Per Dr. Henry's recommendations, will continue with full dose and regulation. PROBLEMS: #Acute hypoxic respiratory failure requiring venti mask O2 supplementation. #Viral sepsis 2/2 covid-19 given lactic acidosis, hypotension, hypothermia. #Covid 19: Admitted to Covid ICU. Continuous oxygen monitoring. Vapotherm FiO2 80%, 30 LPM, trial proning. C/w dexamethasone, remdesivir. Full dose AC with lovenox 1mg/kg q12h. Monitor inflammatory markers improving. Monitor DIC panel, fibrinogen 375. Trop wnl. D dimer trending down. procal negative. DYLAN: Resolved. Creatinine 1.0. Secondary to dehydration. Improved with IVF. DVT prophylaxis: Continue full dose anticoagulations with Lovenox at 1 mg/kg every 12 hours CODE STATUS: full code. Had an extensive conversation with the patient and his daughter, Ayaka. We discussed CODE STATUS, as well as the need for intubation. I feel that the patient does not have a good understanding of what intubation means that he believes that intubation is here for coronavirus. I've explained this to him and his daughter that the patient is a last measure for artificial respiration. Patient states that he was to go home. t this stage, I cannot rely on the patient to sign the paperwork as I do not feel that he is making an informed decision. He has is negative. Patient is visiting his daughter attempted to be the healthcare proxy. VS, I&O, 24H, Fishbone Vital Signs/I&O Vital Signs Date Time Temp Pulse Resp B/P (MAP) Pulse Ox O2 Delivery O2 Flow Rate FiO2 08/17/20 16:00 93 Nasal Cannula 35.0 75 08/17/20 16:00 98.6 91 22 129/62 (84) I&O- Last 24 Hours up to 6 AM 08/17/20 06:00 Intake Total 1290 ml Output Total 1750 ml Balance -460 ml Laboratory Data 24H LABS Laboratory Tests 2 08/17/20 05:22: Immature Granulocyte % (Auto) 0.7, Neutrophils (%) (Auto) 82.0H, Lymphocytes (%) (Auto) 9.8L, Monocytes (%) (Auto) 7.1H, Eosinophils (%) (Auto) 0.3, Basophils (%) (Auto) 0.1, Neutrophils # (Auto) 5.9, Lymphocytes # (Auto) 0.7L, Monocytes # (Auto) 0.5, Eosinophils # (Auto) 0.0, Basophils # (Auto) 0.0, Nucleated Red Blood Cells % (auto) 0.0, Prothrombin Time 15.6H, Prothromb Time International Ratio 1.21, Activated Partial Thromboplast Time 37.6, Fibrinogen 429, D-Dimer, Quantitative 1412.15H, Anion Gap 4L, Glomerular Filtration Rate > 60.0, Calcium Level 8.4L, Magnesium Level 1.8, Ferritin 442H, Total Bilirubin 0.8#, Direct Bilirubin 0.3H, Aspartate Amino Transf (AST/SGOT) 45H, Alanine Aminotransferase (ALT/SGPT) 46, Alkaline Phosphatase 61, US-Jmp-F-Type Natriuretic Peptide 3263H, Total Protein 5.5L, Albumin 2.3L, Albumin/Globulin Ratio 0.7 CBC/BMP Laboratory Tests 08/17/20 05:22 EDUAR SANTIAGO MD Aug 17, 2020 16:19
[2020-08-17] MEDS: SODIUM CHLORIDE 0.9% INJ 10 ML SYR IV SCH (20:01)
[2020-08-18] VITALS: BP 165/79
[2020-08-18 04:00] VITALS: BP 153/76
[2020-08-18 05:54] LABS: BASO % 0.2 % (0.0-1.0); EOS # 0.1 10^3/uL (0.0-0.5); EOS % 1.4 % (0.0-3.0); HEMATOCRIT 38.3 % (42.0-52.0); HEMOGLOBIN 12.7 g/dl (13.5-17.5); LYMPH # 0.6 10^3/uL (1.5-5.0); MEAN CORPUSCULAR HEMOGLOBIN 29.6 pg (27.0-33.0); MEAN CORPUSCULAR HGB CONC 33.2 g/dl (32.0-36.5); MEAN CORPUSCULAR VOLUME 89.3 fl (80.0-96.0); MONO # 0.4 10^3/uL (0.0-0.8); MONO % 7.4 % (0.0-5.0); NEUTROPHILS # 4.8 10^3/uL (1.5-8.5); NEUTROPHILS % 80.3 % (36.0-66.0); PLATELET COUNT, AUTOMATED 197 10^3/uL (150-450); RED BLOOD COUNT 4.29 10^6/uL (4.30-6.10); WHITE BLOOD COUNT 5.9 10^3/uL (4.0-10.0)
[2020-08-18 06:05] LABS: INR 1.08; PROTHROMBIN TIME 14.2 SECONDS (12.5-14.3)
[2020-08-18 06:25] LABS: ALT/SGPT 43 U/L (12-78); BILIRUBIN,DIRECT 0.3 MG/DL (0.0-0.2); BILIRUBIN,TOTAL 0.9 MG/DL (0.2-1.0); BLOOD UREA NITROGEN 20 MG/DL (7-18); CALCIUM LEVEL 7.6 MG/DL (8.8-10.2); CARBON DIOXIDE LEVEL 26 MEQ/L (21-32); CHLORIDE LEVEL 108 MEQ/L (98-107); CREATININE FOR GFR 0.68 MG/DL (0.70-1.30); FERRITIN 390 NG/ML (26-388); GLOMERULAR FILTRATION RATE > 60.0 (>42); GLUCOSE, FASTING 87 MG/DL (70-100); MAGNESIUM LEVEL 1.7 MG/DL (1.8-2.4); NT-PRO BNP 1693 PG/ML (<125); POTASSIUM SERUM 4.4 MEQ/L (3.5-5.1); SODIUM LEVEL 140 MEQ/L (136-145); TOTAL PROTEIN 5.3 GM/DL (6.4-8.2)
[2020-08-18] MEDS: ENOXAPARIN 80MG/0.8ML SYRINGE (J1650 PER 10MG) SC SCH (07:59)
[2020-08-18] MEDS: amLODIPine 10 MG TAB PO SCH (07:59)
[2020-08-18 08:00] VITALS: BP 163/75
[2020-08-18] MEDS: METOPROLOL TART 50 MG TAB PO SCH ×2 (08:00→20:50)
[2020-08-18 08:16] LABS: D-DIMER QUANT 1309.64 ng/ml (<500)
[2020-08-18 12:00] VITALS: BP 117/69
[2020-08-18 16:00] VITALS: BP 121/61
[2020-08-18 20:00] VITALS: BP 124/83
[2020-08-18] MEDS: ENOXAPARIN 60MG/0.6ML SYRINGE (J1650 PER 10MG) SC SCH (20:48)
[2020-08-18] MEDS: SODIUM CHLORIDE 0.9% INJ 10 ML SYR IV SCH (20:50)
--- NOTE | 2020-08-19 | IPNPDOC ---
Date Seen The patient was seen on 08/18/20. Progress Note SUBJECTIVE: Patient was seen and examined at bedside this morning. O2 requirement diminished. Vapotherm 90% SpO2 98% on 30 LPM at 65% FiO2. Patient is alert and oriented x 3. SOB. Denies chest pain, palpitations, n/v/d. OBJECTIVE VITAL SIGNS: please see below General: NAD, comfortable HEENT: PERRLA, EOMI, dry mucous membranes Neck: supple, normal ROM, no JVD Respiratory: Reduced air entry bilaterally. No wheezes. CVS: RRR, normal S1, S2, no murmurs Abdo: soft, no masses, no hepatosplenomegaly, BS+, no rebound tenderness Extremities: no edema MSK: Right BKA Neuro: no focal neuro deficits, moving all 4 extremities (R bka). CN2-12 intact. Psych: calm, cooperative, AAO x 3 LABORATORY DATA, IMAGING STUDIES, MICROBIOLOGY: Please see below. Echocardiogram: (06/16/20) 1. Severe focal thickening and focal calcification deposits of the aortic valvewith marked reduction in mobility. Difficult to determine the number of aortic cusps. Moderate aortic stenosis and mild aortic regurgitation. 2. Normal left ventricle size and internal dimensions and wall thickness. Mildly hyperdynamic left ventricular (LV) systolic function. Left ventricular ejection fraction (LVEF) 70% by visual estimate. No regional left ventricular (LV) wall motion abnormalities. Grade 1 left ventricular (LV) diastolic dysfunction (impaired relaxation filling pattern). 3. Mild mitral annular calcification. No mitral regurgitation. 4. Otherwise normal appearing echocardiogram Doppler findings. 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 Given severe hypoxia elevation in d-dimer, as well as other family to markers high concern for pulmonary embolism. Per Dr. Henry's recommendations, will continue with full dose and regulation. PROBLEMS: #Acute hypoxic respiratory failure #Viral sepsis 2/2 covid-19 given lactic acidosis, hypotension, hypothermia. #Covid 19: Admitted to Covid ICU. C/w dexamethasone, remdesivir. Full dose AC with lovenox 1mg/kg q12h. O2 req diminished. Vapotherm 30LPM 65%. #Elevated BNP: in setting of Covid-19. Echo above, G1DD, LVEF 70%, otherwise normal echo. BNP elevation likely elevated as part of acute inflammation secondary to viremia. #DYLAN: Resolved. Creatinine 1.0. Secondary to dehydration. Improved with IVF. DVT prophylaxis: Continue full dose anticoagulations with Lovenox at 1 mg/kg every 12 hours VS, I&O, 24H, Fishbone Vital Signs/I&O Vital Signs Date Time Temp Pulse Resp B/P (MAP) Pulse Ox O2 Delivery O2 Flow Rate FiO2 08/18/20 20:50 91 08/18/20 20:15 98 HVNI-Vapotherm 30.0 65 08/18/20 16:00 96.5 18 121/61 (81) I&O- Last 24 Hours up to 6 AM 08/18/20 06:00 Intake Total 1030 ml Output Total 1655 ml Balance -625 ml Laboratory Data 24H LABS Laboratory Tests 2 08/18/20 05:50: Immature Granulocyte % (Auto) 0.7, Neutrophils (%) (Auto) 80.3H, Lymphocytes (%) (Auto) 10.0L, Monocytes (%) (Auto) 7.4H, Eosinophils (%) (Auto) 1.4, Basophils (%) (Auto) 0.2, Neutrophils # (Auto) 4.8, Lymphocytes # (Auto) 0.6L, Monocytes # (Auto) 0.4, Eosinophils # (Auto) 0.1, Basophils # (Auto) 0.0, Nucleated Red Bl ood Cells % (auto) 0.0, Prothrombin Time 14.2H, Prothromb Time International Ratio 1.08, Activated Partial Thromboplast Time 40.0H, Fibrinogen 432, D-Dimer, Quantitative 1309.64H, Anion Gap 6L, Glomerular Filtration Rate > 60.0, Calcium Level 7.6L, Magnesium Level 1.7L, Ferritin 390H, Total Bilirubin 0.9, Direct Bilirubin 0.3H, Aspartate Amino Transf (AST/SGOT) 32, Alanine Aminotransferase (ALT/SGPT) 43, Alkaline Phosphatase 64, NN-Qrd-X-Type Natriuretic Peptide 1693H, Total Protein 5.3L, Albumin 2.0L, Albumin/Globulin Ratio 0.6, Procalcitonin 0.12 CBC/BMP Laboratory Tests 08/18/20 05:50 EDUAR SANTIAGO MD Aug 19, 2020 00:00
[2020-08-19 00:02] VITALS: BP 146/70
[2020-08-19 04:00] VITALS: BP 140/72
[2020-08-19 05:05] LABS: BASO % 0.2 % (0.0-1.0); EOS # 0.2 10^3/uL (0.0-0.5); EOS % 2.6 % (0.0-3.0); HEMATOCRIT 41.1 % (42.0-52.0); HEMOGLOBIN 13.3 g/dl (13.5-17.5); LYMPH # 0.7 10^3/uL (1.5-5.0); MEAN CORPUSCULAR HEMOGLOBIN 29.2 pg (27.0-33.0); MEAN CORPUSCULAR HGB CONC 32.4 g/dl (32.0-36.5); MEAN CORPUSCULAR VOLUME 90.3 fl (80.0-96.0); MONO # 0.6 10^3/uL (0.0-0.8); MONO % 9.5 % (0.0-5.0); NEUTROPHILS % 75.9 % (36.0-66.0); PLATELET COUNT, AUTOMATED 227 10^3/uL (150-450); RED BLOOD COUNT 4.55 10^6/uL (4.30-6.10); WHITE BLOOD COUNT 6.5 10^3/uL (4.0-10.0)
[2020-08-19 05:34] LABS: ALBUMIN 2.2 GM/DL (3.2-5.2); ALT/SGPT 35 U/L (12-78); BILIRUBIN,TOTAL 0.7 MG/DL (0.2-1.0); BLOOD UREA NITROGEN 24 MG/DL (7-18); CALCIUM LEVEL 7.8 MG/DL (8.8-10.2); CARBON DIOXIDE LEVEL 30 MEQ/L (21-32); CHLORIDE LEVEL 107 MEQ/L (98-107); CREATININE FOR GFR 0.82 MG/DL (0.70-1.30); GLOMERULAR FILTRATION RATE > 60.0 (>42); GLUCOSE, FASTING 90 MG/DL (70-100); POTASSIUM SERUM 4.6 MEQ/L (3.5-5.1); SODIUM LEVEL 140 MEQ/L (136-145); TOTAL PROTEIN 5.5 GM/DL (6.4-8.2)
--- NOTE | 2020-08-19 07:50 | IPNPDOC ---
Text Note Date of Service The patient was seen on 08/19/20. NOTE Subjective: Patient seen and examined at bedside this morning. He is feeling a lot better today. According to the nurse there was no overnight events and his oxygen requirements have decreased. Patient denies any chest pain continues to have mild shortness of breath but says is much better than before. Patient has been able to speak to me during the encounter. He is without appearing short of breath. Objective: Constitutional: Awake and alert, in no apparent distress ENT: Sclera are clear. Mucosa is moist. Respiratory: Reduced air entry bilaterally but no wheezing. No respiratory distress. No use of accessory muscles. On Vapotherm Cardiovascular: RRR S1 and S2 are normal, no murmur Gastrointestinal: Abdomen is soft, non distended, non tender, BS present. Musculoskeletal: No edema. Right-sided BKA Neurologic: No focal neurological deficit. Mental Status: A&O x3, normal affect Skin: Warm, dry Imaging: Echocardiogram: (06/16/20) 1. Severe focal thickening and focal calcification deposits of the aortic valvewith marked reduction in mobility. Difficult to determine the number of aortic cusps. Moderate aortic stenosis and mild aortic regurgitation. 2. Normal left ventricle size and internal dimensions and wall thickness. Mildly hyperdynamic left ventricular (LV) systolic function. Left ventricular ejection fraction (LVEF) 70% by visual estimate. No regional left ventricular (LV) wall motion abnormalities. Grade 1 left ventricular (LV) diastolic dysfunction (impaired relaxation filling pattern). 3. Mild mitral annular calcification. No mitral regurgitation. 4. Otherwise normal appearing echocardiogram Doppler findings. 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 Given severe hypoxia elevation in d-dimer, as well as other family to markers high concern for pulmonary embolism. Per Dr. Henry's recommendations, will continue with full dose anticoagulation #Acute hypoxic respiratory failure #Viral sepsis 2/2 covid-19 given lactic acidosis, hypotension, hypothermia. #Covid 19: Admitted to Covid ICU. C/w dexamethasone, remdesivir. Full dose AC with lovenox 1mg/kg q12h. O2 req diminished. Vapotherm 30LPM 65%. #Elevated BNP: in setting of Covid-19. Echo above, G1DD, LVEF 70%, otherwise normal echo. BNP elevation likely elevated as part of acute inflammation secondary to viremia. #DYLAN: Resolved. Creatinine 1.0. Secondary to dehydration. Improved with IVF. DVT prophylaxis: Continue full dose anticoagulations with Lovenox at 1 mg/kg every 12 hours A Jackie Hospitalist VSBrandon, I+O VSBrandon, I+O Laboratory Tests 08/19/20 05:00 Vital Signs Date Time Temp Pulse Resp B/P (MAP) Pulse Ox O2 Delivery O2 Flow Rate FiO2 08/19/20 06:00 84 93 HVNI-Vapotherm 30.0 50 08/19/20 04:00 96.8 20 140/72 (94) I&O- Last 24 Hours up to 6 AM 08/19/20 06:00 Intake Total 1260 ml Output Total 900 ml Balance 360 ml BLADIMIR POPE MD Aug 19, 2020 07:50
[2020-08-19 08:00] VITALS: BP 156/78
[2020-08-19] MEDS: ENOXAPARIN 60MG/0.6ML SYRINGE (J1650 PER 10MG) SC SCH ×2 (08:08→20:02)
[2020-08-19] MEDS: METOPROLOL TART 50 MG TAB PO SCH ×2 (08:09→20:02)
[2020-08-19] MEDS: amLODIPine 10 MG TAB PO SCH (08:10)
[2020-08-19 12:00] VITALS: BP 104/62
[2020-08-19 16:01] VITALS: BP 108/77
[2020-08-19 20:01] VITALS: BP 119/61
[2020-08-19] MEDS: SODIUM CHLORIDE 0.9% INJ 10 ML SYR IV SCH (20:01)
[2020-08-20] VITALS: BP 140/73
[2020-08-20 04:00] VITALS: BP 141/67
[2020-08-20 04:46] LABS: BASO % 0.3 % (0.0-1.0); EOS # 0.2 10^3/uL (0.0-0.5); EOS % 2.9 % (0.0-3.0); HEMATOCRIT 40.6 % (42.0-52.0); HEMOGLOBIN 13.3 g/dl (13.5-17.5); LYMPH # 0.9 10^3/uL (1.5-5.0); LYMPH % 12.5 % (24.0-44.0); MEAN CORPUSCULAR HEMOGLOBIN 29.8 pg (27.0-33.0); MEAN CORPUSCULAR HGB CONC 32.8 g/dl (32.0-36.5); MONO # 0.8 10^3/uL (0.0-0.8); NEUTROPHILS # 4.9 10^3/uL (1.5-8.5); NEUTROPHILS % 71.6 % (36.0-66.0); PLATELET COUNT, AUTOMATED 258 10^3/uL (150-450); RED BLOOD COUNT 4.46 10^6/uL (4.30-6.10); WHITE BLOOD COUNT 6.8 10^3/uL (4.0-10.0)
[2020-08-20 04:58] LABS: INR 1.18; PROTHROMBIN TIME 15.3 SECONDS (12.5-14.3)
[2020-08-20 04:59] LABS: PARTIAL THROMBOPLASTIN TIME 41.6 SECONDS (24.2-38.5)
[2020-08-20 05:02] LABS: D-DIMER QUANT 1094.51 ng/ml (<500)
[2020-08-20 05:15] LABS: ALBUMIN 2.1 GM/DL (3.2-5.2); ALT/SGPT 30 U/L (12-78); BILIRUBIN,DIRECT 0.2 MG/DL (0.0-0.2); BILIRUBIN,TOTAL 0.7 MG/DL (0.2-1.0); BLOOD UREA NITROGEN 23 MG/DL (7-18); C REACTIVE PROTEIN QUANTITATIV 5.17 MG/DL (0.00-0.30); CALCIUM LEVEL 7.5 MG/DL (8.8-10.2); CARBON DIOXIDE LEVEL 27 MEQ/L (21-32); CHLORIDE LEVEL 108 MEQ/L (98-107); FERRITIN 354 NG/ML (26-388); GLOMERULAR FILTRATION RATE > 60.0 (>42); GLUCOSE, FASTING 83 MG/DL (70-100); SODIUM LEVEL 141 MEQ/L (136-145); TOTAL PROTEIN 5.5 GM/DL (6.4-8.2)
--- NOTE | 2020-08-20 07:50 | IPNPDOC ---
Text Note Date of Service The patient was seen on 08/20/20. NOTE Subjective: Patient seen and examined at bedside this morning. He is feeling a lot better today. He's feeling much better and is now down to 3 L of oxygen by nasal cannula in the afternoon. Physical therapy did a trial of 1 L and he did not drop below 91% and reported no shortness of breath throughout exertion. Patient tells me his feeling great and his shortness of breath has improved significantly. Nursing reports no overnight events. Objective: Constitutional: Awake and alert, in no apparent distress ENT: Sclera are clear. Mucosa is moist. Respiratory: improved from yesterday air entry bilaterally no wheezing. No respiratory distress. No use of accessory muscles. On room air Cardiovascular: RRR S1 and S2 are normal, no murmur Gastrointestinal: Abdomen is soft, non distended, non tender, BS present. Musculoskeletal: No edema. Right-sided BKA Neurologic: No focal neurological deficit. Mental Status: A&O x3, normal affect Skin: Warm, dry Imaging: Echocardiogram: (06/16/20) 1. Severe focal thickening and focal calcification deposits of the aortic valvewith marked reduction in mobility. Difficult to determine the number of aortic cusps. Moderate aortic stenosis and mild aortic regurgitation. 2. Normal left ventricle size and internal dimensions and wall thickness. Mildly hyperdynamic left ventricular (LV) systolic function. Left ventricular ejection fraction (LVEF) 70% by visual estimate. No regional left ventricular (LV) wall motion abnormalities. Grade 1 left ventricular (LV) diastolic dysfunction (impaired relaxation filling pattern). 3. Mild mitral annular calcification. No mitral regurgitation. 4. Otherwise normal appearing echocardiogram Doppler findings. 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 Given severe hypoxia elevation in d-dimer, as well as other family to markers high concern for pulmonary embolism. Per Dr. Henry's recommendations, will continue with full dose anticoagulation #Acute hypoxic respiratory failure due to Covid 19 infection. Requiring Vapotherm in the ICU initially. On 08/20/2020 no longer requiring Vapotherm as on 3 L of oxygen by nasal cannula. Trial pronating if needed. Continue dexamethasone and then to severe. Therapeutic Lovenox. Trend inflammatory gayatri ers. D-dimer downtrending. Pro-calcitonin negative. Downgrade to PCU. # DYLAN: From dehydration. Resolved with IV fluids. # DVT prophylaxis: Theraputic More Pope Hospitalist Brandon MCMANUS, I+O Brandon MCMANUS I+O Laboratory Tests 08/20/20 03:47 Vital Signs Date Time Temp Pulse Resp B/P (MAP) Pulse Ox O2 Delivery O2 Flow Rate FiO2 08/20/20 06:00 78 91 HVNI-Vapotherm 10.0 35 08/20/20 04:00 97.7 17 141/67 (91) I&O- Last 24 Hours up to 6 AM 08/20/20 06:00 Intake Total 1310 ml Output Total 1000 ml Balance 310 ml BLADIMIR POPE MD Aug 20, 2020 07:50
[2020-08-20 08:00] VITALS: BP 154/73
[2020-08-20] MEDS: ENOXAPARIN 60MG/0.6ML SYRINGE (J1650 PER 10MG) SC SCH ×2 (08:01→20:02)
[2020-08-20] MEDS: amLODIPine 10 MG TAB PO SCH (08:02)
[2020-08-20] MEDS: METOPROLOL TART 50 MG TAB PO SCH ×2 (08:02→20:08)
[2020-08-20 12:00] VITALS: BP 125/80
[2020-08-20 16:00] VITALS: BP 108/77
[2020-08-20 20:00] VITALS: BP 131/70
[2020-08-20] MEDS: SODIUM CHLORIDE 0.9% INJ 10 ML SYR IV SCH (21:06)
[2020-08-21] VITALS: BP 135/64
[2020-08-21 04:00] VITALS: BP 144/75
[2020-08-21 04:52] LABS: BASO % 0.2 % (0.0-1.0); EOS # 0.2 10^3/uL (0.0-0.5); EOS % 2.5 % (0.0-3.0); HEMATOCRIT 39.3 % (42.0-52.0); HEMOGLOBIN 12.8 g/dl (13.5-17.5); LYMPH # 0.9 10^3/uL (1.5-5.0); LYMPH % 15.2 % (24.0-44.0); MEAN CORPUSCULAR HEMOGLOBIN 29.8 pg (27.0-33.0); MEAN CORPUSCULAR HGB CONC 32.6 g/dl (32.0-36.5); MEAN CORPUSCULAR VOLUME 91.4 fl (80.0-96.0); MONO # 0.9 10^3/uL (0.0-0.8); MONO % 15.1 % (0.0-5.0); NEUTROPHILS % 66.2 % (36.0-66.0); PLATELET COUNT, AUTOMATED 254 10^3/uL (150-450)
[2020-08-21 05:05] LABS: INR 1.23; PROTHROMBIN TIME 15.8 SECONDS (12.5-14.3)
[2020-08-21 05:06] LABS: PARTIAL THROMBOPLASTIN TIME 44.9 SECONDS (24.2-38.5)
[2020-08-21 05:09] LABS: D-DIMER QUANT 892.15 ng/ml (<500)
[2020-08-21 05:16] LABS: ALT/SGPT 26 U/L (12-78); BILIRUBIN,DIRECT 0.2 MG/DL (0.0-0.2); BILIRUBIN,TOTAL 0.5 MG/DL (0.2-1.0); BLOOD UREA NITROGEN 22 MG/DL (7-18); C REACTIVE PROTEIN QUANTITATIV 4.14 MG/DL (0.00-0.30); CALCIUM LEVEL 8.1 MG/DL (8.8-10.2); CARBON DIOXIDE LEVEL 26 MEQ/L (21-32); CHLORIDE LEVEL 110 MEQ/L (98-107); CREATININE FOR GFR 0.79 MG/DL (0.70-1.30); FERRITIN 335 NG/ML (26-388); GLOMERULAR FILTRATION RATE > 60.0 (>42); GLUCOSE, FASTING 80 MG/DL (70-100); MAGNESIUM LEVEL 1.9 MG/DL (1.8-2.4); POTASSIUM SERUM 4.7 MEQ/L (3.5-5.1); SODIUM LEVEL 140 MEQ/L (136-145); TOTAL PROTEIN 5.4 GM/DL (6.4-8.2)
[2020-08-21 08:00] VITALS: BP 162/75
[2020-08-21 08:45] VITALS: BP 162/75
[2020-08-21] MEDS: ENOXAPARIN 60MG/0.6ML SYRINGE (J1650 PER 10MG) SC SCH (08:45)
[2020-08-21] MEDS: amLODIPine 10 MG TAB PO SCH (08:45)
[2020-08-21] MEDS: METOPROLOL TART 50 MG TAB PO SCH (08:45)
[2020-08-21] MEDS ORDERED: LOVE0.4I2 SC (12:00)
[2020-08-21] MEDS ORDERED: VENTAER INH (12:07)
--- NOTE | 2020-08-21 12:14 | DS.PDOC ---
Discharge Summary General Date of Admission Aug 13, 2020 at 19:29 Date of Discharge 08/21/2020 Discharge Summary PROCEDURES PERFORMED DURING STAY: [None]. ADMITTING DIAGNOSES: Hypoxia due to Covid 19 infection DISCHARGE DIAGNOSES: Acute hypoxic respiratory failure due to Covid 19 infection COMPLICATIONS/CHIEF COMPLAINT: Covid-19. HISTORY OF PRESENT ILLNESS: From H and P:70 yo M with a hx of HTN, difficulty hearing, was seen at an urgent care, found to be COVID+. Had been in bed since tuesday, and has had poor PO intake. Cousin thought he may have had a stroke, so they brought him to urgent care, and he tested positive. On arrival to ED hypoxic to 70s. Requred 50% FiO2 on venturi mask. 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 Given severe hypoxia elevation in d-dimer, as well as other family to markers high concern for pulmonary embolism. Per Dr. Henry's recommendations, will continue with full dose anticoagulation #Acute hypoxic respiratory failure due to Covid 19 infection. Requiring Vapotherm in the ICU initially and then downgraded on August 20. On 08/20/2020 no longer requiring Vapotherm as on 3 L of oxygen by nasal cannula and later patient was down to only room air saturating over 90% both at rest and ambulation.s/p dexamethasone and Rimdasivir. therapeutic Lovenox because patient is high risk and this will be continued for 3 months upon discharge. Inflammatory markers downtrending. D-dimer downtrending. Pro-calcitonin negative. Patient clear for discharge on 08/21/2020. No pneumonia no need for antibiotics. Completed course of dexamethasone no need for outpatient steroids. Saturating well on room air both at rest and ambulation no need for supplement oxygen. # DYLAN: From dehydration. Resolved with IV fluids. DISCHARGE MEDICATIONS: Please see below. ALLERGIES: Please see below. PHYSICAL EXAMINATION ON DISCHARGE: Constitutional: Awake and alert, in no apparent distress ENT: Sclera are clear. Mucosa is moist. Respiratory: Lungs are clear to auscultation today with good air entry and no wheezing. No respiratory distress. No use of accessory muscles. On room air Cardiovascular: RRR S1 and S2 are normal, no murmur Gastrointestinal: Abdomen is soft, non distended, non tender, BS present. Musculoskeletal: No edema. Right-sided BKA Neurologic: No focal neurological deficit. Mental Status: A&O x3, normal affect Skin: Warm, dry LABORATORY DATA: Please see below. IMAGING: Echocardiogram: (06/16/20) 1. Severe focal thickening and focal calcification deposits of the aortic valvewith marked reduction in mobility. Difficult to determine the number of aortic cusps. Moderate aortic stenosis and mild aortic regurgitation. 2. Normal left ventricle size and internal dimensions and wall thickness. Mildly hyperdynamic left ventricular (LV) systolic function. Left ventricular ejection fraction (LVEF) 70% by visual estimate. No regional left ventricular (LV) wall motion abnormalities. Grade 1 left ventricular (LV) diastolic dysfunction (impaired relaxation filling pattern). 3. Mild mitral annular calcification. No mitral regurgitation. 4. Otherwise normal appearing echocardiogram Doppler findings. PROGNOSIS: Fair ACTIVITY: [As tolerated]. DIET: 2 g sodium diet DISPOSITION: Home DISCHARGE INSTRUCTIONS: Please follow up with your primary care physician within 1 week from discharge. If you do not have one, please follow up with us to schedule an appointment. Please keep all of your follow up appointments. Please call central to book your appointments with hospital specialists. Please take all your medications as prescribed. Please call/come to Clinic or go to the Emergency Department if - Temp >101, intractable Nausea/Vomiting, Diarrhea, Mouth sores, Headaches, Altered mental status, Seizures, sudden onset of swelling, bleeding, shortness of breath or chest pain. Discussed with patient quarantine requirements per CDC recommendations. ITEMS TO FOLLOWUP ON ON OUTPATIENT: 1. Continue to take Lovenox as prescribed for the next 3 months and watch for signs of bleeding discontinue and see her PCP if you develop signs of bleeding discussed. 2. Follow-up with primary care doctor within 5 days of discharge by telemedicine DISCHARGE CONDITION: [Stable]. TIME SPENT ON DISCHARGE: Greater than 40 minutes. Vital Signs/I&Os Vital Signs Date Time Temp Pulse Resp B/P (MAP) Pulse Ox O2 Delivery O2 Flow Rate FiO2 08/21/20 08:45 103 162/75 08/21/20 08:00 98.1 16 94 Room Air 08/20/20 12:00 3.0 08/20/20 08:00 30 I&O- Last 24 Hours up to 6 AM 08/21/20 06:00 Intake Total 1240 ml Output Total 850 ml Balance 390 ml Laboratory Data Labs 24H Laboratory Tests 2 08/21/20 04:13: Immature Granulocyte % (Auto) 0.8, Neutrophils (%) (Auto) 66.2H, Lymphocytes (%) (Auto) 15.2L, Monocytes (%) (Auto) 15.1H, Eosinophils (%) (Auto) 2.5, Basophils (%) (Auto) 0.2, Neutrophils # (Auto) 4.0, Lymphocytes # (Auto) 0.9L, Monocytes # (Auto) 0.9H, Eosinophils # (Auto) 0.2, Basophils # (Auto) 0.0, Nucleated Red Blood Cells % (auto) 0.0, Prothrombin Time 15.8H, Prothromb Time International Ratio 1.23, Activated Partial Thromboplast Time 44.9H, Fibrinogen 471H, D-Dimer, Quantitative 892.15H, Anion Gap 4L, Glomerular Filtration Rate > 60.0, Calcium Level 8.1L, Magnesium Level 1.9, Ferritin 335, Total Bilirubin 0.5, Direct Bilirubin 0.2, Aspartate Amino Transf (AST/SGOT) 10, Alanine Aminotransferase (ALT/SGPT) 26, Alkaline Phosphatase 67, C-Reactive Protein, Quantitative 4.14H, Total Protein 5.4L, Albumin 2.0L, Albumin/Globulin Ratio 0.6 CBC/BMP Laboratory Tests 08/21/20 04:13 Discharge Medications Scheduled Amlodipine Besylate (Amlodipine Besylate) 5 Mg Tab, 10 MG PO DAILY, (Reported) Aspirin (Aspirin EC) 325 Mg Tab, 325 MG PO DAILY, (Reported) Enoxaparin Sodium (Lovenox) 60 Mg/0.6 Ml Syringe, 60 MG SC Q12H Metoprolol Tartrate (Metoprolol Tartrate) 50 Mg Tablet, 50 MG PO BID, (Reported) Pravastatin Sodium (Pravastatin Sodium) 40 Mg Tab, 40 MG PO DAILY, (Reported) Scheduled PRN Albuterol Sulfate (Ventolin Hfa) 18 Gm Hfa.aer.ad, 2 PUFF INH Q4-6HP PRN for wheezing Allergies Coded Allergies: No Known Allergies (Unverified , 08/05/20) BLADIMIR POPE MD Aug 21, 2020 12:14
[2020-08-21 12:21] VITALS: BP 137/60
[2020-08-21] MEDS ORDERED: FLUBLOK(EGG FREE)(QUAD)INFLUENZA VACC 0.5ML SYRINGE 18YRS & OLDER IM ONE (13:15)
[2020-08-21] MEDS ORDERED: ENOXAPARIN 30MG/0.3ML SYRINGE (J1650 PER 10MG) SC ONE (13:30)
[2020-08-21 15:01] VITALS: BP 156/76
--- NOTE | 2020-08-26 11:30 | CR ---
PULMONARY/CRITICAL CARE CONSULTATION NOTE: This is a Telemedicine/remote consult. DATE: 08/14/2020 CHIEF COMPLAINT: Weakness. HISTORY OF PRESENT ILLNESS: Mr. Nagel is a 70-year-old male with a past medical history of hypertension who had presented with complaints initially of weakness and decreased oral intake. Patient reportedly had been almost bed-bound since Tuesday which was 4 days prior to his presentation to the ED. Patient had initially gone to Urgent Care where he tested positive for COVID-19. He was then referred to the ED for further evaluation. Patient also reported symptoms of shortness of breath for the past week and decreased oral intake as well as some complaints of abdominal pain. He was hypoxic in the ED as well as tachypneic and he was placed on a Venturi mask with improvement in is oxygenation. Patient was admitted and transferred to the medical ICU for further management. He was also started on remdesivir as well as dexamethasone. Patient was also given 1 dose of Lovenox 1 mg per kg yesterday. PAST MEDICAL AND SURGICAL HISTORY: 1. Hypertension. 2. Hearing difficulty. 3. 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 HOME MEDICATIONS: 1. Amlodipine. 2. Aspirin. 3. Lisinopril/hydrochlorothiazide. 4. Metoprolol. 5. Pravastatin. ALLERGIES: No known drug allergies. FAMILY HISTORY: Patient unable to specify any family history. SOCIAL HISTORY: Patient is a former smoker quit 20 years ago. Denies any alcohol use. Lives with his brother and works at [employer]. PHYSICAL EXAMINATION: Vitals: Temperature 95.7, pulse 89, respiratory rate 18, blood pressure 120/64, O2 sat 92% on 50% FiO2 and later 91% on 6 liters nasal cannula. Ins 1.4 liters, outs 150 mL, net + 1.3 liters. LABORATORY DATA: WBC 2.4, hemoglobin 13.2, platelets 104. Chemistries: Sodium 141, potassium 4.7, chloride 113, bicarbonate 23, BUN 46, creatinine 1 improved from admission of 1.65, glucose 147. Lactic acid 2.7, repeat 1.4. Calcium 7, magnesium 2.3, ferritin 737. AST/ALT 27/21, alkaline phosphatase 40. Troponin negative. BNP 338. Albumin 2. CRP 12.3. Procalcitonin 0.09. ABG yesterday: pH 7.458, PCO2 30.3, PO2 60. D-dimer on admission was greater than 4000. INR 0.96. IMAGING DATA: Chest x-ray 08/13/2020 showed some increased interstitial markings more predominant at the bases particularly at the left base. ASSESSMENT AND PLAN: Mr. Nagel is a 70-year-old male with a past medical history of hypertension who presented with complaints of weakness as well as decreased oral intake and shortness of breath. The patient has reportedly been bed-bound for the past 4 days or so prior to his presentation to the ED. Patient was found to be COVID-19 positive. In the ED he had acute hypoxemic respiratory failure and initially was on Ventimask to maintain his oxygenation. He was started on dexamethasone 6 mg I.V. daily as well as remdesivir for his hypoxemic respiratory failure. He was also given 1 dose of the Lovenox at 1 mg per kg dosing yesterday. Patient's chest x-ray initially showed some increased interstitial markings more pronounced at the bases. There was no large focal opacities noted. Given his acute hypoxemic respiratory failure as well as being bed-bound with the very significantly elevated D-dimer on admission above 4000 suspect patient likely has VTE with a PE in particular contributing to his hypoxemic respiratory failure. Patient's blood pressure appears stable and his troponins are negative although he does have a mildly elevated BNP which may be suggestive of some degree of right heart strain. Patient was unable to get any chest imaging due to mild DYLAN on admission. His creatinine does appear improved with I.V. fluid hydration. Would continue with empiric anticoagulation and would increase his anticoagulation given the improvement of creatinine to Lovenox 1 mg per kg twice a day dosage and continue to monitor his D-dimer as well as his coags. Would get a lower extremity duplex to evaluate for DVT as well as an echocardiogram to evaluate for signs of right heart strain. Can continue dexamethasone 6 mg I.V. daily for a 10 day course and continue with remdesivir as well with monitoring of his LFTs daily while on the remdesivir. Continue with as needed oxygen supplementation and would wean down as tolerated to maintain an O2 sat above 90%. Would discontinue normal saline given his mild hyperchloremia and can give maintenance fluids with half NS at 75 mL an hour; however, as he is on nasal cannula oxygen now would encourage oral intake instead if tolerated and then discontinue I.V. fluids when patient is having adequate oral intake. Would be cautious about over-fluid administration. He did have DYLAN on admission although this does appear improved. Would continue to monitor his platelets. They have trended down slightly, but are still acceptable for full dose anticoagulation at this time. Patient did no receive any antibiotics initially. He does not appear to have any focal opacities on imaging. His procalcitonin has also been negative. Would monitor closely; however, as he does have some leucopenia. If he has worsening cough or fever would consider starting antibiotics at that time and repeat chest x-ray. DVT prophylaxis: On anticoagulation. CODE STATUS: Full Code. Please do not hesitate to call if any further questions or concerns.
== END 2020-08-21 15:27 | disposition home health service (06) | DRG 177 ==
LOC: M ED 15:25 → EEVIPCON 19:29 → M ED INP 19:29 → ENRESERV 22:18 → M ICU 23:10
PROVIDERS: ADMIT Family Medicine; ATTEND Family Medicine
DX: U07.1 COVID-19 (principal); R65.11 Systemic inflammatory response syndrome (SIRS) of non-infectious origin with acute organ dysfunction; J96.01 Acute respiratory failure with hypoxia; A41.89 Other specified sepsis; N17.9 Acute kidney failure, unspecified; E87.2 Acidosis; I10 Essential (primary) hypertension; Z79.82 Long term (current) use of aspirin; Z79.899 Other long term (current) drug therapy; Z89.511 Acquired absence of right leg below knee; Z87.891 Personal history of nicotine dependence

== ENCOUNTER → 2021-02-11 | Outpatient (CLI) | payer MEDICARE ==
[~2021-02-11] MED LIST changes: +ISOVUE-370 76% 100ML VIAL As Ordered ONE; +LOVE0.4I2 SC; +METO50TA7 PO; +VENTAER INH
--- NOTE | 2021-02-16 03:50 | REP ---
INDICATION: ATHEROSCLEROSIS LT LEG W/ ULCER COMPARISON: None TECHNIQUE: Axial noncontrast images from the lung bases to the pubic symphysis with coronal and sagittal reformations. This CT examination was performed using the following dose reduction techniques: Automated exposure control, adjustment of mA and/or kv according to the patient's size, and use of iterative reconstruction technique. FINDINGS: Lung bases are clear. Visualized heart and pericardium normal. Liver, spleen, pancreas, bilateral adrenal glands and kidneys are essentially normal for arterial phase images. Cholelithiasis noted without acute cholecystitis. The enteric system is grossly unremarkable and without obvious obstruction or acute inflammatory process. Diverticulosis noted without acute diverticulitis. Pelvis demonstrates prostatomegaly with mass effect on the base of the bladder. No significant retroperitoneal or intraperitoneal adenopathy noted. Mildly prominent bilateral groin nodes measure up to 15 mm. No ascites. No free air. Musculoskeletal structures demonstrate degenerative changes. There is significant partially calcified atherosclerotic changes of the aorta with considerable atherosclerotic changes to the bilateral iliac arteries including internal and external iliac arteries which appear patent but with suggested scattered areas of narrowing/stenosis. Significant partially calcified atherosclerotic changes are than identified throughout the visualized bilateral lower extremities with calcifications limiting evaluation of patency. Right common iliac artery and profundus are patent and the right superficial femoral artery than appears gradually stenotic and essentially occluded at the mid artery level to the level of the popliteal where minimal amount of revascularization by deep arterial vessels to the level of the amputation is noted. Left common iliac artery and left profundus are patent with gradual narrowing through the superficial femoral artery which appears to be occluded at the mid artery level followed by revascularization at the distal SFA/popliteal level by deep geniculate arteries. There appears to be subsequent satisfactory flow through the trifurcation followed by gradual narrowing and essentially presumed occlusion of the anterior tibial and peroneal arteries with posterior tibial artery vascular is a payne extending from the mid/distal tibial level to the ankle. IMPRESSION: 1. Significant atherosclerotic changes noted throughout the abdomen/pelvis and lower extremities as described above. 2. Cholelithiasis. 3. Diverticulosis. <Electronically signed by Sourav White > 02/16/21 [id number]
== END ==
LOC: M RAD 12:30
PROVIDERS: ATTEND Physician Assistant
DX: I70.248 Atherosclerosis of native arteries of left leg with ulceration of other part of lower leg (principal); K80.20 Calculus of gallbladder without cholecystitis without obstruction; K57.90 Diverticulosis of intestine, part unspecified, without perforation or abscess without bleeding; N40.0 Benign prostatic hyperplasia without lower urinary tract symptoms; I70.0 Atherosclerosis of aorta; L97.929 Non-pressure chronic ulcer of unspecified part of left lower leg with unspecified severity
CPT/HCPCS: 75635; Q9967

== ENCOUNTER → 2021-09-17 | Outpatient (REF) ==
[~2021-09-17] MED LIST changes: -ISOVUE-370 76% 100ML VIAL As Ordered ONE
== END ==
LOC: M LABSMTC 09:58
PROVIDERS: ATTEND Pediatrics
DX: Z11.52 Encounter for screening for COVID-19 (principal)

== ENCOUNTER → 2021-12-02 | Outpatient (CLI) | payer OTHER | LOC: M LABSMTC 09:24 | PROVIDERS: ATTEND Anesthesiology | DX: Z11.52 Encounter for screening for COVID-19 (principal); Z20.822 Contact with and (suspected) exposure to COVID-19 ==

== ENCOUNTER 2021-12-07 06:02 | Day surgery (SDC) | payer MEDICARE, OTHER ==
[~2021-12-07] VITALS: Ht 165.1 cm; Wt 69.9 kg
[~2021-12-07 06:02] MED LIST changes: +LIDOCAINE 1% MDV 20ML VIAL SQ PRN; +LR 1,000 ML IV ONE; +ceFAZolin SOD 2 GM in IV 1 EA IV ONE
[2021-12-07 07:42] VITALS: BP 232/100
[2021-12-07] MEDS ORDERED: LISI5TAB11 PO (08:26)
== END 2021-12-07 08:39 | disposition home or self-care (01) ==
LOC: M SDC 06:02
PROVIDERS: ATTEND Surgery
DX: K40.90 Unilateral inguinal hernia, without obstruction or gangrene, not specified as recurrent (principal); Z53.09 Procedure and treatment not carried out because of other contraindication; I10 Essential (primary) hypertension

== ENCOUNTER 2021-12-07 08:04 | Emergency (ER) | payer MEDICAID, MEDICARE, OTHER ==
[~2021-12-07] VITALS: Ht 165.1 cm; Wt 70.0 kg
[~2021-12-07 08:04] MED LIST changes: -LIDOCAINE 1% MDV 20ML VIAL SQ PRN; -LR 1,000 ML IV ONE; -ceFAZolin SOD 2 GM in IV 1 EA IV ONE
[2021-12-07] MEDS ORDERED: LISI5TAB11 PO (08:26)
[2021-12-07] MEDS ORDERED: lisinopriL 5 MG TAB PO ONE (08:30)
[2021-12-07] MEDS ORDERED: METOPROLOL TART 50 MG TAB PO ONE (08:30)
[2021-12-07 08:43] VITALS: BP 192/90
[2021-12-07 09:39] VITALS: BP 198/90
== END 2021-12-07 09:44 | disposition home or self-care (01) ==
LOC: M ED 08:04
DX: I10 Essential (primary) hypertension (principal); E78.5 Hyperlipidemia, unspecified; Z87.891 Personal history of nicotine dependence; Z79.82 Long term (current) use of aspirin; Z79.899 Other long term (current) drug therapy

== ENCOUNTER → 2022-02-24 | Outpatient (CLI) | payer MEDICARE ==
[~2022-02-24] MED LIST changes: +AMLO1TAB25 PO; +LISI10TA22 PO; +LISI5TAB11 PO
== END ==
LOC: M LABSMTC 09:04
PROVIDERS: ATTEND Anesthesiology
DX: Z11.52 Encounter for screening for COVID-19 (principal)

== ENCOUNTER 2022-03-01 06:13 | Day surgery (SDC) | payer MEDICARE ==
[~2022-03-01] VITALS: Ht 165.1 cm; Wt 69.4 kg
[~2022-03-01 06:13] MED LIST changes: +ceFAZolin SOD 2 GM in IV 1 EA IV ONE
[2022-03-01] MEDS ORDERED: LR 1,000 ML IV SCH ×2 (06:55→08:50)
[2022-03-01] MEDS ORDERED: BUPIVACAINE/EPIN 0.25% 30 ML VIAL As Ordered ONE (07:13)
[2022-03-01] MEDS ORDERED: fentaNYL 250 MCG/5 ML INJECTION As Ordered ONE (07:27)
[2022-03-01] MEDS ORDERED: ROCURONIUM BROMIDE 50 MG/5 ML VIAL As Ordered ONE (07:28)
[2022-03-01] MEDS ORDERED: LIDOCAINE 2% 100MG/5ML SDV (FOR ANES.) As Ordered ONE (07:31)
[2022-03-01] MEDS ORDERED: dexameTHASONE 4 MG/ML 1ML VIAL (J1100 PER 1MG) As Ordered ONE (08:37)
[2022-03-01] MEDS ORDERED: ONDANSETRON 4MG/2ML VIAL As Ordered ONE (08:37)
[2022-03-01] MEDS ORDERED: fentaNYL 100 MCG/2 ML INJECTION IV PRN (08:50)
[2022-03-01] MEDS ORDERED: HYDROMORPHONE HCL 0.5 MG/ 0.5 ML SYRINGE (J1170 PER 1) IV PRN (08:50)
[2022-03-01] MEDS ORDERED: SUGAMMADEX SODIUM 500 MG/5 ML VIAL (BRIDION) As Ordered ONE (08:50)
[2022-03-01] MEDS ORDERED: ONDANSETRON 4MG/2ML VIAL IV PRN (08:50)
[2022-03-01] MEDS ORDERED: oxyCODONE 5MG TAB PO PRN (08:50)
[2022-03-01] MEDS ORDERED: METOCLOPRAMIDE INJ 10MG/2ML VIAL (J2765 PER 1) IV PRN (08:50)
[2022-03-01] MEDS ORDERED: hydrALAZINE 20MG/ML 1ML VIAL (J0360 PER 20MG) IV PRN (09:10)
[2022-03-01] MEDS ORDERED: LABETALOL 100MG/20ML VIAL IV PRN (09:10)
[2022-03-01] MEDS ORDERED: ALBUTEROL SULFATE 2.5 MG/0.5 ML INH NEB SOLN NEB ONE (10:35)
[2022-03-01 13:20] VITALS: BP 175/9
== END 2022-03-01 13:35 | disposition home or self-care (01) ==
LOC: M SDC 06:13
PROVIDERS: ATTEND Surgery
DX: K40.90 Unilateral inguinal hernia, without obstruction or gangrene, not specified as recurrent (principal); I10 Essential (primary) hypertension; I73.9 Peripheral vascular disease, unspecified; E78.5 Hyperlipidemia, unspecified; F03.90 Unspecified dementia, unspecified severity, without behavioral disturbance, psychotic disturbance, mood disturbance, and anxiety; Z79.82 Long term (current) use of aspirin; Z79.899 Other long term (current) drug therapy; Z87.891 Personal history of nicotine dependence
CPT/HCPCS: 49650; 71045; C1781; J0690; J1100; J2405; J3010; S2900

== ENCOUNTER → 2022-04-01 | Outpatient (CLI) | payer MEDICARE ==
[~2022-04-01] MED LIST changes: -ceFAZolin SOD 2 GM in IV 1 EA IV ONE
== END ==
LOC: M RAD 12:21
PROVIDERS: ATTEND Surgery Vascular Surgery
DX: I70.212 Atherosclerosis of native arteries of extremities with intermittent claudication, left leg (principal); I87.392 Chronic venous hypertension (idiopathic) with other complications of left lower extremity; I70.0 Atherosclerosis of aorta

== ENCOUNTER → 2022-04-21 | Outpatient (CLI) | payer MEDICARE ==
[~2022-04-21] MED LIST changes: +ISOVUE-370 76% 100ML VIAL As Ordered ONE
== END ==
LOC: M RAD 13:18
PROVIDERS: ATTEND Surgery Vascular Surgery
DX: I70.0 Atherosclerosis of aorta (principal); I70.203 Unspecified atherosclerosis of native arteries of extremities, bilateral legs
CPT/HCPCS: 75635; Q9967

== ENCOUNTER 2022-05-04 09:51 | Emergency (ER) | payer MEDICARE ==
[~2022-05-04] VITALS: Ht 165.1 cm; Wt 65.9 kg
[~2022-05-04 09:51] MED LIST changes: -ISOVUE-370 76% 100ML VIAL As Ordered ONE
[2022-05-04] MEDS ORDERED: NS 1,000 ML IV ONE (12:05)
[2022-05-04] MEDS ORDERED: ISOVUE-370 76% 100ML VIAL As Ordered ONE (12:45)
[2022-05-04 12:59] LABS: BASO % 0.3 % (0.0-1.0); EOS # 0.1 10^3/uL (0.0-0.5); EOS % 1.3 % (0.0-3.0); HEMATOCRIT 42.4 % (42.0-52.0); HEMOGLOBIN 14.6 g/dl (13.5-17.5); LYMPH % 12.6 % (24.0-44.0); MEAN CORPUSCULAR HEMOGLOBIN 30.8 pg (27.0-33.0); MEAN CORPUSCULAR HGB CONC 34.4 g/dl (32.0-36.5); MEAN CORPUSCULAR VOLUME 89.5 fl (80.0-96.0); MONO # 0.8 10^3/uL (0.0-0.8); MONO % 10.2 % (2.0-8.0); NEUTROPHILS # 5.9 10^3/uL (1.5-8.5); NEUTROPHILS % 75.1 % (36.0-66.0); PLATELET COUNT, AUTOMATED 210 10^3/uL (150-450); RED BLOOD COUNT 4.74 10^6/uL (4.30-6.10); WHITE BLOOD COUNT 7.9 10^3/uL (4.0-10.0)
[2022-05-04 13:08] LABS: INR 1.08; PROTHROMBIN TIME 14.4 SECONDS (12.7-14.5)
[2022-05-04 13:09] LABS: PARTIAL THROMBOPLASTIN TIME 32.7 SECONDS (25.9-37.0)
[2022-05-04 13:33] LABS: ERYTHROCYTE SEDIMENTATION RATE 48 mm/hr (0-20)
[2022-05-04 13:41] LABS: ALBUMIN 3.1 GM/DL (3.2-5.2); BILIRUBIN,DIRECT 0.2 MG/DL (0.0-0.2); BILIRUBIN,TOTAL 0.7 MG/DL (0.2-1.0); C REACTIVE PROTEIN QUANTITATIV 9.31 MG/DL (0.00-0.30); TOTAL PROTEIN 7.5 GM/DL (6.4-8.2)
[2022-05-04] MEDS ORDERED: MORPHINE 4 MG/ML 1ML VIAL/SYRINGE IV ONE (17:20)
[2022-05-04] MEDS ORDERED: PERC5TAB12 PO (18:29)
[2022-05-04 18:34] VITALS: BP 166/82
== END 2022-05-04 18:37 | disposition home or self-care (01) ==
LOC: M ED 09:51
DX: I73.9 Peripheral vascular disease, unspecified (principal); I10 Essential (primary) hypertension; F03.90 Unspecified dementia, unspecified severity, without behavioral disturbance, psychotic disturbance, mood disturbance, and anxiety; Z86.718 Personal history of other venous thrombosis and embolism; Z87.891 Personal history of nicotine dependence; Z83.2 Family history of diseases of the blood and blood-forming organs and certain disorders involving the immune mechanism; Z89.511 Acquired absence of right leg below knee; Z79.82 Long term (current) use of aspirin; Z79.899 Other long term (current) drug therapy
CPT/HCPCS: 36415; 75635; 80047; 80076; 83605; 85025; 85610; 85652; 85730; 86140; 87635; 96361; 96374; 99284; J2270; Q9967

== ENCOUNTER → 2023-09-26 | Outpatient (CLI) | payer MEDICARE, SELFPAY ==
[~2023-09-26] MED LIST changes: +PERC5TAB12 PO
[2023-09-26 11:00] LABS: HEMOGLOBIN 15.1 g/dl (13.5-17.5); MEAN CORPUSCULAR HEMOGLOBIN 30.9 pg (27.0-33.0); MEAN CORPUSCULAR HGB CONC 34.3 g/dl (32.0-36.5); PLATELET COUNT, AUTOMATED 106 10^3/uL (150-450); RED BLOOD COUNT 4.89 10^6/uL (4.30-6.10); WHITE BLOOD COUNT 5.4 10^3/uL (4.0-10.0)
[2023-09-26 11:27] LABS: BLOOD UREA NITROGEN 20 MG/DL (9-23); CALCIUM LEVEL 9.3 MG/DL (8.3-10.6); CARBON DIOXIDE LEVEL 29 MMOL/L (20-31); CHLORIDE LEVEL 104 MMOL/L (98-107); CREATININE FOR GFR 1.18 MG/DL (0.70-1.30); GLOMERULAR FILTRATION RATE > 60.0 (>42); GLUCOSE, FASTING 95 MG/DL (74-106); SODIUM LEVEL 135 MMOL/L (136-145)
== END ==
LOC: M LAB 10:34
PROVIDERS: ATTEND Internal Medicine Interventional Cardiology
DX: I35.0 Nonrheumatic aortic (valve) stenosis (principal); I70.209 Unspecified atherosclerosis of native arteries of extremities, unspecified extremity; I25.10 Atherosclerotic heart disease of native coronary artery without angina pectoris